=== PATIENT | male | born 1975 | race Caucasian/White ===

== ENCOUNTER 2018-02-08 01:07 | Observation (INO) ==
[2018-02-08] MEDS ORDERED: VITAMIN K IVC ONE (01:45)
[2018-02-08] MEDS ORDERED: *HR* LORazepam 2 MG/ML VIAL IVP ONE (01:45)
[2018-02-08] MEDS ORDERED: MVI IVC ONE (01:45)
[2018-02-08] MEDS ORDERED: Thiamine (B-1) 200 MG/2 ML VIAL IM ONE (01:45)
[2018-02-08] MEDS ORDERED: FOLIC ACID IVC ONE (01:45)
[2018-02-08] MEDS ORDERED: SODIUM CHLORIDE 0.9% IVC ONE (01:45)
[2018-02-08] MEDS ORDERED: 0.9 % Sodium Chloride 1,000 ML IVC ONE (01:45)
[2018-02-08] MEDS ORDERED: Folic Acid 1 MG in D5% in Water 50 ML IVPB ONE (01:45)
--- NOTE | 2018-02-08 02:02 | Emergency Department Note ---
Disposition Clinical Impression: Suicidal ideation, Alcohol abuse Disposition: Admitted As Inpatient Condition: Fair Referrals: NONE,PCP [Primary Care Provider] - Forms: ED Satisfaction Letter Time of Disposition: 03:00 Psych HPI - General Chief Complaint: ED Psychiatric Symptoms Stated Complaint: SI Time Seen by Provider: 02/08/18 01:26 Source: patient Mode of arrival: ambulatory Limitations: no limitations Nursing Notes Reviewed: Yes Vital Signs Reviewed: Yes - History of Present Illness HPI Narrative: 42-year-old male presents for evaluation of suicidal ideations and worsening depression. He states multiple significant life stressors at home have accumulated recently. These include the breakup with his significant other, loss of a job, and mounting financial debt. He states that for the past 16 days , he has drank a half gallon of whiskey per day. He states that his last drink was approximately 2 hours prior to arrival. He is extremely anxious in the room. He states that tonight, he took a knife and held it to his neck in an attempt to "cut my neck". There is a small superficial laceration noted to the lateral aspect of the anterior neck. He denies any previous suicidal gestures. He denies any thoughts of harming others. He does state that for the past several days he has been experiencing visual hallucinations including "seeing demons run around". He denies any auditory hallucinations. He denies any other recreational He denies any other medical complaints. Pt complaint: suicidal ideation, feels depressed Duration: getting worse History of similar episodes: No Improves with: none Worsens with: none Context: recent alcohol abuse Alleged intoxication: Yes Associated Psychiatric Symptoms: depression, suicidal ideation Associated symptoms: Reports: denies other symptoms Traumatic symptoms: denies traumatic injury Self harm or harm to others: admits thoughts of self harm, has acted on plan - Related Data Allergies Allergy/AdvReac Type Severity Reaction Status Date / Time No Known Allergies Allergy Verified 02/08/18 01:12 All systems ED: reviewed and negative except as stated. Review of Systems: As Per HPI Constitutional: Denies: fever, chills, weakness, weight change Eyes: Denies: eye pain, eye discharge, vision change ENT ED: Denies: ear pain, throat pain, dental pain, hearing loss, epistaxis, congestion, dysphagia Cardiovascular: Denies: chest pain, palpitations, dyspnea on exertion, edema, syncope Respiratory: Denies: cough, dyspnea, wheezes, hemoptysis, stridor Gastrointestinal: Denies: abdominal pain, nausea, vomiting, diarrhea, constipation, hematemesis, melena, hematochezia Genitourinary: Denies: urgency, dysuria, frequency, hematuria Musculoskeletal: Denies: back pain, neck pain, arthralgia, myalgia Integumentary: Denies: rash, abrasion, lesions Neurological: Denies: headache, weakness, numbness, paresthesias, confusion, abnormal gait, vertigo Psychiatric: Reports: as per HPI, depression, suicidal thoughts. Denies: anxiety, homicidal thoughts, auditory hallucinations, visual hallucinations Endocrine: Denies: fatigue Hematological/Lymphatic: Denies: easy bleeding, easy bruising Allergic/Immunologic: Denies: facial swelling, urticaria Past Medical History - Past Medical History Attestation: Yes The following information was validated with the patient. Source: patient, nursing notes reviewed Medical history: Reports: hypertension Psychiatric history: Reports: anxiety, bipolar, depression - Social History Smoking Status: Never smoker Alcohol use: Reports: heavy, recent Drug use: Reports: none Physical Exam - General Limitations: no limitations General appearance: alert, in no apparent distress - Head Head exam: atraumatic, normocephalic, normal inspection - Eye Eye exam: Present: normal appearance, PERRL, EOMI. Absent: nystagmus - ENT ENT exam: mucous membranes moist - Neck Neck exam: Present: normal inspection, full ROM, trachea midline - Chest Chest inspection: Present: normal inspection, symmetric chest wall rise - Respiratory Respiratory exam: Present: normal lung sounds bilaterally. Absent: respiratory distress, wheezes, stridor, accessory muscle use, prolonged expiratory phase - Cardiovascular Cardiovascular exam: Present: regular rate, normal rhythm, normal heart sounds - Abdominal Exam Abdominal exam: Present: soft, Non-Tender, normal bowel sounds - Extremities Exam Extremities exam: Present: normal inspection, full ROM - Neurological Exam Neurological exam: Present: alert, oriented X3 - Psychiatric Psychiatric exam: Present: depressed, anxious, suicidal ideation, other (Tearful ) - Skin Skin exam: Present: warm, dry, intact, normal color Course Course Narrative: 0250: I spoke with Dr. Caicedo, hospitalist on-call. The patient will be admitted to the hospitalist service or observation and management regarding his heavy alcohol intake and concern for alcohol withdrawal prior to consultation by in-house psychiatry. Vital Signs Temperature 99.5 F 02/08/18 01:08 Pulse Rate 145 02/08/18 01:08 Respiratory Rate 24 02/08/18 01:08 Blood Pressure 175/119 02/08/18 01:08 O2 Sat by Pulse Oximetry 98 02/08/18 01:08 Temperature 99.5 F 02/08/18 01:08 Pulse Rate 145 02/08/18 01:08 Respiratory Rate 24 02/08/18 01:08 Blood Pressure 175/119 02/08/18 01:08 O2 Sat by Pulse Oximetry 98 02/08/18 01:08 Oxygen Delivery Oxygen Delivery Room Air Psych - Lab Data Lab results reviewed: Yes I reviewed the patient's lab results. Lab results narrative: Lab Results 02/08/18 02/08/18 02/08/18 Range/Units 01:44 01:44 02:10 WBC 5.7 (4.3-11.1) K/mcL RBC 5.29 (4.19-5.50) M/mcL Hgb 14.5 (12.9-16.9) g/dL Hct 42.3 (37.5-50.1) % MCV 80.0 L (83.0-100.0) fL MCH 27.4 L (28.0-33.3) pg MCHC 34.3 (31.6-35.5) g/dL RDW 14.7 H (11.5-14.5) % Plt Count 153 (140-400) K/mcL MPV 9.5 (9.4-12.4) fL Immature Gran % 0.4 (0-4) % Seg Neutrophils % 53.4 % Lymphocytes % 31.7 % Monocytes % 12.4 % Eosinophils % 1.2 % Basophils % 0.9 % Neutrophils # 3.1 (1.6-8.9) K/mcL Lymphocytes # 1.8 (0.6-4.6) K/mcL Monocytes # 0.7 (0.0-1.3) K/mcL Eosinophils # 0.1 (0.0-0.6) K/mcL Basophils # 0.1 (0.0-0.2) K/mcL Sodium 133 L (136-145) mEq/L Potassium 3.5 (3.5-5.1) mEq/L Chloride 94 L (98-107) mEq/L Carbon Dioxide 20 L (23-29) mEq/L BUN 7 (6-20) mg/dL Creatinine 0.72 (0.70-1.30) mg/dL Est GFR ( Amer) > 60 (> 60) Est GFR (Non-Af Amer) > 60 (> 60) BUN/Creatinine Ratio 10 (6-26) Glucose 104 (70-105) mg/dL Calculated Osmolality 274 L (280-300) Calcium 9.2 (8.6-10.3) mg/dL Phosphorus 3.9 (2.7-4.5) mg/dL Magnesium 1.5 L (1.6-2.6) mg/dL Urine Color Yellow (Yellow) Urine Clarity Clear (Clear) Urine pH 6.0 (5.0-8.0) pH Units Ur Specific [place] < 1.005 L (1.010-1.025) Urine Protein 100 H (Neg-Trace) mg/dL Urine Glucose (UA) Normal (Normal) mg/dL Urine Ketones Negative (Negative) mg/dL Urine Blood Moderate H (Negative) Urine Nitrite Negative (Negative) Urine Bilirubin Negative (Negative) Urine Urobilinogen Normal (Normal) mg/dL Ur Leukocyte Esterase Negative (Negative) Urine Bacteria Few (None-Few) per hpf Salicylates < 2.5 L (15.0-30.0) mg/dL Urine Opiates Screen (Niynro=079) ng/mL Acetaminophen < 10 L (10-20) mcg/mL Ur Barbiturates Screen (Qnfkgn=694) ng/mL Ur Phencyclidine Scrn (Cutoff=25) ng/mL Ur Amphetamines Screen (Fnohfe=6334) ng/mL U Benzodiazepines Scrn (Tahrdg=951) ng/mL Urine Cocaine Screen (Cutoff= 300) ng/mL U Marijuana (THC) Screen (Cutoff = 50) ng/mL Ur Drug Screen Interp Ethyl Alcohol 317 H (Less than 10) mg/dL 02/08/18 Range/Units 02:10 WBC (4.3-11.1) K/mcL RBC (4.19-5.50) M/mcL Hgb (12.9-16.9) g/dL Hct (37.5-50.1) % MCV (83.0-100.0) fL MCH (28.0-33.3) pg MCHC (31.6-35.5) g/dL RDW (11.5-14.5) % Plt Count (140-400) K/mcL MPV (9.4-12.4) fL Immature Gran % (0-4) % Seg Neutrophils % % Lymphocytes % % Monocytes % % Eosinophils % % Basophils % % Neutrophils # (1.6-8.9) K/mcL Lymphocytes # (0.6-4.6) K/mcL Monocytes # (0.0-1.3) K/mcL Eosinophils # (0.0-0.6) K/mcL Basophils # (0.0-0.2) K/mcL Sodium (136-145) mEq/L Potassium (3.5-5.1) mEq/L Chloride (98-107) mEq/L Carbon Dioxide (23-29) mEq/L BUN (6-20) mg/dL Creatinine (0.70-1.30) mg/dL Est GFR ( Amer) (> 60) Est GFR (Non-Af Amer) (> 60) BUN/Creatinine Ratio (6-26) Glucose (70-105) mg/dL Calculated Osmolality (280-300) Calcium (8.6-10.3) mg/dL Phosphorus (2.7-4.5) mg/dL Magnesium (1.6-2.6) mg/dL Urine Color (Yellow) Urine Clarity (Clear) Urine pH (5.0-8.0) pH Units Ur Specific [place] (1.010-1.025) Urine Protein (Neg-Trace) mg/dL Urine Glucose (UA) (Normal) mg/dL Urine Ketones (Negative) mg/dL Urine Blood (Negative) Urine Nitrite (Negative) Urine Bilirubin (Negative) Urine Urobilinogen (Normal) mg/dL Ur Leukocyte Esterase (Negative) Urine Bacteria (None-Few) per hpf Salicylates (15.0-30.0) mg/dL Urine Opiates Screen Negative (Bathjy=566) ng/mL Acetaminophen (10-20) mcg/mL Ur Barbiturates Screen Negative (Bqijms=783) ng/mL Ur Phencyclidine Scrn Negative (Cutoff=25) ng/mL Ur Amphetamines Screen Negative (Zwviki=5004) ng/mL U Benzodiazepines Scrn Negative (Abttjg=365) ng/mL Urine Cocaine Screen Negative (Cutoff= 300) ng/mL U Marijuana (THC) Screen Negative (Cutoff = 50) ng/mL Ur Drug Screen Interp See Below Ethyl Alcohol (Less than 10) mg/dL Result diagrams: 02/08/18 01:44 02/08/18 01:44 Lab Results 02/08/18 02/08/18 02/08/18 Range/Units 01:44 01:44 02:10 WBC 5.7 (4.3-11.1) K/mcL RBC 5.29 (4.19-5.50) M/mcL Hgb 14.5 (12.9-16.9) g/dL Hct 42.3 (37.5-50.1) % MCV 80.0 L (83.0-100.0) fL MCH 27.4 L (28.0-33.3) pg MCHC 34.3 (31.6-35.5) g/dL RDW 14.7 H (11.5-14.5) % Plt Count 153 (140-400) K/mcL MPV 9.5 (9.4-12.4) fL Immature Gran % 0.4 (0-4) % Seg Neutrophils % 53.4 % Lymphocytes % 31.7 % Monocytes % 12.4 % Eosinophils % 1.2 % Basophils % 0.9 % Neutrophils # 3.1 (1.6-8.9) K/mcL Lymphocytes # 1.8 (0.6-4.6) K/mcL Monocytes # 0.7 (0.0-1.3) K/mcL Eosinophils # 0.1 (0.0-0.6) K/mcL Basophils # 0.1 (0.0-0.2) K/mcL Sodium 133 L (136-145) mEq/L Potassium 3.5 (3.5-5.1) mEq/L Chloride 94 L (98-107) mEq/L Carbon Dioxide 20 L (23-29) mEq/L BUN 7 (6-20) mg/dL Creatinine 0.72 (0.70-1.30) mg/dL Est GFR ( Amer) > 60 (> 60) Est GFR (Non-Af Amer) > 60 (> 60) BUN/Creatinine Ratio 10 (6-26) Glucose 104 (70-105) mg/dL Calculated Osmolality 274 L (280-300) Calcium 9.2 (8.6-10.3) mg/dL Phosphorus 3.9 (2.7-4.5) mg/dL Magnesium 1.5 L (1.6-2.6) mg/dL Urine Color Yellow (Yellow) Urine Clarity Clear (Clear) Urine pH 6.0 (5.0-8.0) pH Units Ur Specific [place] < 1.005 L (1.010-1.025) Urine Protein 100 H (Neg-Trace) mg/dL Urine Glucose (UA) Normal (Normal) mg/dL Urine Ketones Negative (Negative) mg/dL Urine Blood Moderate H (Negative) Urine Nitrite Negative (Negative) Urine Bilirubin Negative (Negative) Urine Urobilinogen Normal (Normal) mg/dL Ur Leukocyte Esterase Negative (Negative) Urine Bacteria Few (None-Few) per hpf Salicylates < 2.5 L (15.0-30.0) mg/dL Urine Opiates Screen (Lmsozj=707) ng/mL Acetaminophen < 10 L (10-20) mcg/mL Ur Barbiturates Screen (Revquj=421) ng/mL Ur Phencyclidine Scrn (Cutoff=25) ng/mL Ur Amphetamines Screen (Lkvkyk=7325) ng/mL U Benzodiazepines Scrn (Lzuete=251) ng/mL Urine Cocaine Screen (Cutoff= 300) ng/mL U Marijuana (THC) Screen (Cutoff = 50) ng/mL Ur Drug Screen Interp Ethyl Alcohol 317 H (Less than 10) mg/dL 02/08/18 Range/Units 02:10 WBC (4.3-11.1) K/mcL RBC (4.19-5.50) M/mcL Hgb (12.9-16.9) g/dL Hct (37.5-50.1) % MCV (83.0-100.0) fL MCH (28.0-33.3) pg MCHC (31.6-35.5) g/dL RDW (11.5-14.5) % Plt Count (140-400) K/mcL MPV (9.4-12.4) fL Immature Gran % (0-4) % Seg Neutrophils % % Lymphocytes % % Monocytes % % Eosinophils % % Basophils % % Neutrophils # (1.6-8.9) K/mcL Lymphocytes # (0.6-4.6) K/mcL Monocytes # (0.0-1.3) K/mcL Eosinophils # (0.0-0.6) K/mcL Basophils # (0.0-0.2) K/mcL Sodium (136-145) mEq/L Potassium (3.5-5.1) mEq/L Chloride (98-107) mEq/L Carbon Dioxide (23-29) mEq/L BUN (6-20) mg/dL Creatinine (0.70-1.30) mg/dL Est GFR ( Amer) (> 60) Est GFR (Non-Af Amer) (> 60) BUN/Creatinine Ratio (6-26) Glucose (70-105) mg/dL Calculated Osmolality (280-300) Calcium (8.6-10.3) mg/dL Phosphorus (2.7-4.5) mg/dL Magnesium (1.6-2.6) mg/dL Urine Color (Yellow) Urine Clarity (Clear) Urine pH (5.0-8.0) pH Units Ur Specific [place] (1.010-1.025) Urine Protein (Neg-Trace) mg/dL Urine Glucose (UA) (Normal) mg/dL Urine Ketones (Negative) mg/dL Urine Blood (Negative) Urine Nitrite (Negative) Urine Bilirubin (Negative) Urine Urobilinogen (Normal) mg/dL Ur Leukocyte Esterase (Negative) Urine Bacteria (None-Few) per hpf Salicylates (15.0-30.0) mg/dL Urine Opiates Screen Negative (Fbeplj=075) ng/mL Acetaminophen (10-20) mcg/mL Ur Barbiturates Screen Negative (Abhtbx=653) ng/mL Ur Phencyclidine Scrn Negative (Cutoff=25) ng/mL Ur Amphetamines Screen Negative (Oorkne=2424) ng/mL U Benzodiazepines Scrn Negative (Fzfkzm=737) ng/mL Urine Cocaine Screen Negative (Cutoff= 300) ng/mL U Marijuana (THC) Screen Negative (Cutoff = 50) ng/mL Ur Drug Screen Interp See Below Ethyl Alcohol (Less than 10) mg/dL - EKG Data EKG attestation: Yes I reviewed and interpreted this EKG. EKG results narrative: EKG showed a sinus tachycardia at a rate of 148 bpm. NV interval 132, QRS duration 87, QT/QTc interval 267/352. No ectopy noted. No ST elevation. Psychiatric Medical Clearance - Medical Clearance Checklist Medical History: No Social History Section defined Current Vitals: Last Vital Signs Temp 99.5 F 02/08/18 01:08 Pulse 145 02/08/18 01:08 Resp 24 02/08/18 01:08 BP 175/119 02/08/18 01:08 Pulse Ox 98 02/08/18 01:08 Psychiatric Lab Panel: Drug Levels and Toxicity 02/08/18 02/08/18 01:44 02:10 Urine Opiates Screen Negative Acetaminophen < 10 L Ur Barbiturates Screen Negative Ur Phencyclidine Scrn Negative Ur Amphetamines Screen Negative U Benzodiazepines Scrn Negative Urine Cocaine Screen Negative U Marijuana (THC) Screen Negative Ethyl Alcohol 317 H Abnormal Labs: Abnormal lab results MCV 80.0 fL (83.0-100.0) L 02/08/18 01:44 MCH 27.4 pg (28.0-33.3) L 02/08/18 01:44 RDW 14.7 % (11.5-14.5) H 02/08/18 01:44 Sodium 133 mEq/L (136-145) L 02/08/18 01:44 Chloride 94 mEq/L (98-107) L 02/08/18 01:44 Carbon Dioxide 20 mEq/L (23-29) L 02/08/18 01:44 Calculated Osmolality 274 (280-300) L 02/08/18 01:44 Magnesium 1.5 mg/dL (1.6-2.6) L 02/08/18 01:44 Ur Specific [place] < 1.005 (1.010-1.025) L 02/08/18 02:10 Urine Protein 100 mg/dL (Neg-Trace) H 02/08/18 02:10 Urine Blood Moderate (Negative) H 02/08/18 02:10 Salicylates < 2.5 mg/dL (15.0-30.0) L 02/08/18 01:44 Acetaminophen < 10 mcg/mL (10-20) L 02/08/18 01:44 Ethyl Alcohol 317 mg/dL (Less than 10) H 02/08/18 01:44 Statement of Medical Clearance: I have evaluated the patient, reviewed diagnostic information, and certify that the patient's medical condition is sufficiently stable that transfer to the psychiatric unit does not pose a significant risk of deterioration.
[2018-02-08 02:06] LABS: Basophils # 0.1 K/mcL (0.0-0.2); Basophils % 0.9 %; Eosinophils # 0.1 K/mcL (0.0-0.6); Eosinophils % 1.2 %; Hematocrit 42.3 % (37.5-50.1); Hemoglobin 14.5 g/dL (12.9-16.9); Immature Granulocytes % 0.4 % (0-4); Lymphocytes # 1.8 K/mcL (0.6-4.6); Lymphocytes % 31.7 %; Mean Corpuscular HGB Conc 34.3 g/dL (31.6-35.5); Mean Corpuscular Hemoglobin 27.4 pg (28.0-33.3); Mean Platelet Volume 9.5 fL (9.4-12.4); Monocytes # 0.7 K/mcL (0.0-1.3); Monocytes % 12.4 %; Neutrophils # 3.1 K/mcL (1.6-8.9); Platelet Count 153 K/mcL (140-400); Red Blood Count 5.29 M/mcL (4.19-5.50); Red Cell Distribution Width 14.7 % (11.5-14.5); Segmented Neutrophils % 53.4 %
[2018-02-08 02:15] LABS: Acetaminophen < 10 mcg/mL (10-20); BUN/Creatinine Ratio 10 (6-26); Blood Urea Nitrogen 7 mg/dL (6-20); Calcium 9.2 mg/dL (8.6-10.3); Carbon Dioxide 20 mEq/L (23-29); Chloride 94 mEq/L (98-107); Ethanol 317 mg/dL (Less than 10); Glucose 104 mg/dL (70-105); Magnesium 1.5 mg/dL (1.6-2.6); Osmolality,Calculated 274 (280-300); Phosphorous 3.9 mg/dL (2.7-4.5); Potassium 3.5 mEq/L (3.5-5.1); Salicylate < 2.5 mg/dL (15.0-30.0); Sodium 133 mEq/L (136-145); eGFR For Non-African Americans > 60 (> 60)
[2018-02-08 02:22] LABS: Bilirubin,Urine Negative (Negative); Blood,Urine Moderate (Negative); Clarity,Urine Clear (Clear); Color,Urine Yellow (Yellow); Glucose,Urine (UA) Normal (Normal); Ketones,Urine Negative (Negative); Leukocyte Esterase,Urine Negative (Negative); Nitrite,Urine Negative (Negative); Protein,Urine 100 mg/dL (Neg-Trace); Specific Gravity,Urine < 1.005 (1.010-1.025); Urobilinogen,Urine Normal (Normal)
[2018-02-08 02:31] LABS: Amphetamine Screen,Urine Negative ng/mL (Cutoff=1000); Barbiturate Screen,Urine Negative ng/mL (Cutoff=200); Benzodiazepines Screen,Urine Negative ng/mL (Cutoff=200); Cannabinoid Screen,Urine Negative ng/mL (Cutoff = 50); Cocaine Screen,Urine Negative ng/mL (Cutoff= 300); Opiate Screen,Urine Negative ng/mL (Cutoff=300); Phencyclidine Screen,Urine Negative ng/mL (Cutoff=25)
[2018-02-08] MEDS ORDERED: Magnesium Oxide 400 MG TABLET PO STA (02:33)
[2018-02-08 02:58] LABS: Bacteria,Urine Few per hpf (None-Few)
[2018-02-08] MEDS: *HR* LORazepam 2 MG/ML VIAL IVP PRN ×4 (06:17→20:26)
[2018-02-08] MEDS: *HR* Promethazine 25 MG/ML VIAL IVP PRN ×2 (06:58→11:21)
--- NOTE | 2018-02-08 07:44 | Internal Med History&Physical ---
Date of Encounter: 02/08/18 Time of Encounter: 07:43 Internal Medicine - H&P: HPI Chief complaint: Suicidal ideation Admitted From: Emergency Dept Plans for Post Hospital Care: Home History of present illness: Mr. Merino is a 42 year old male patient presented to the emergency department with suicidal ideations and worsening depression. He has had significant life stressors including loss of job financial dad and brachial pulses girlfriend. For the past 16 days he has been drinking half a gallon of vodka a day. He has been experiencing hallucinations stating he is seeing demons running around. He has had suicidal thoughts and attempted to cut his neck. He did present to the emergency department with a superficial laceration to his neck. He denies any recreational drug use or cigarette smoking. He admits that his drinking has been cyclic and occurs mostly when he is depressed. He states that he did have an episode of seizures secondary to alcohol withdrawal approximately a year or so ago. Initial tox screen does show alcohol level 317. Lab work did show slight hyponatremia and hypomagnesemia. He was given IV fluid as well as magnesium IV. Currently patient complains of nausea denies any hallucinations at this time. Nursing staff reports that he is required supplemental Ativan based CIWA scale. He has been admitted for further workup evaluation of suicidal ideation and alcohol withdrawal Past Med Surg Social Fam HX - Past Medical History Medical history: hypertension Psychiatric history: anxiety, bipolar, depression - Social History Smoking Status: Never smoker Alcohol use: heavy, recent Drug use: none - Additional Family History Additional family history: Family history reviewed-nonapplicable Internal Medicine - H&P: Meds No Known Home Drugs 02/08/18 [History] 3 Allergy/AdvReac Type Severity Reaction Status Date / Time No Known Allergies Allergy Verified 02/08/18 01:12 All Systems PM: A 10-system review of systems was performed and is negative for pertinent findings except as documented above in the HPI. - Constitutional Constitutional: no chills, no fever(s), no night sweats - EENT Eyes: no change in vision, no discharge, no pain, no photophobia Ears: no ear discharge, no ear pain, no tinnitus Nose, mouth and throat: no dysphagia, no nasal discharge, no neck pain, no sore throat - Cardiovascular Cardiovascular ROS IM: no chest pain, no diaphoresis, no dyspnea, no lightheadedness, no palpitations, no syncope - Respiratory Respiratory: no cough, no dyspnea, no wheezing, no excessive phlegm production - Gastrointestinal Gastrointestinal: no abdominal pain, no diarrhea, no hematemesis, no hematochezia, no melena, no nausea, no vomiting - Musculoskeletal Musculoskeletal ROS IM: no numbness, no tingling - Integumentary Integumentary IM: no rash, no unusual bruising - Neurological Neurological ROS: no confusion, no convulsions, no focal weakness, no numbness, no tingling, no tremor(s) - Psychiatric Psychiatric: visual hallucinations - Hematologic/Lymphatic Hematologic/Lymphatic: no easy bruising - Constitutional Vitals: Temp Pulse Resp BP Pulse Ox 98.5 F 125 16 132/87 96 02/08/18 05:05 02/08/18 05:05 02/08/18 05:05 02/08/18 05:05 02/08/18 05:05 General appearance: Present: A&O X 3 Exam: see above - Head Head exam: Present: atraumatic, normocephalic - Eye Eye exam: Present: PERRL, conjuntiva pink, sclera anicteric Pupils: Present: PERRL - Neck Neck exam general surgery: Present: supple, trachea midline. Absent: lymphadenopathy - Respiratory Respiratory exam: Present: CTAB. Absent: accessory muscle use, rales, rhonchi, wheezes - Cardiovascular Cardiovascular exam: Present: RRR, +S1, +S2. Absent: diastolic murmur, gallop, rubs, systolic murmur - GI/Abdominal GI/Abdominal exam: Present: normal bowel sounds, soft, no peritoneal signs. Absent: distended, tenderness - Extremities Exam Extremities exam: Present: warm, radial pulses palpable and symmetrical. Absent : calf tenderness, cyanotic, pedal edema - Neurological Exam Neurological exam: Present: CN II-XII intact, oriented X3, no focal deficits. Absent: pronater drift, facial droop, speech deficit - Skin Skin exam: Present: dry, intact Internal Med - H&P Results - Labs CBC & Chem 7: 02/08/18 01:44 02/08/18 01:44 - Assessment and plan (1) Alcohol abuse Current Visit: Yes Status: Acute Assessment and plan: Patient states he has a past history of alcohol use mostly during times of stress. He recently has experienced several life stressors including loss of job loss of relationship and financial debt. He states apraxia year ago he did experience a seizure secondary to alcohol withdrawal. We will place on seizure precautions Continue with CIWA Continue with Librium 4 times a day Banana bag IV daily Zofran as needed for nausea Advance diet as tolerated Continue with IV fluids Monitor electrolytes and replace (2) Hypomagnesemia Current Visit: Yes Status: Acute Assessment and plan: Mag was 1.5 today most likely secondary to alcohol abuse we will replace and monitor (3) Suicidal ideation Current Visit: Yes Status: Acute Assessment and plan: 1 patient states that he had been experiencing suicidal ideation and depression he has had several life stressors including loss of job ending a relationship as well as financial debt. He attempted to cut his neck and sustained a superficial laceration to his neck. We will consult psychiatry once patient is medically stable (4) Hyponatremia Current Visit: Yes Status: Acute Assessment and plan: Patient does have some slight hyponatremia 133 today secondary to alcohol use we will continue to monitor he will receive IV fluids recheck in the a.m. - Time Spent With Patient Total time spent is greater than 50% in coordination of care (as documented) at patient's floor/unit and/or counseling patient:
[2018-02-08] MEDS ORDERED: Naloxone 0.4 MG/ML INJ IVP PRN (10:47)
[2018-02-08] MEDS ORDERED: *HR* LORazepam 2 MG/ML VIAL IVP PRN (11:34)
--- NOTE | 2018-02-08 15:51 | Consult Note ---
Date of Encounter: 02/08/18 Time of Encounter: 14:15 Assessment & Recommendation (1) Suicidal ideation Current visit: Yes Status: Acute Assessment & Recommendation: contiue 1:1 start lexapro 10 mg start depakote 250 mg bid. will need psychiatric inpatient. (2) Alcohol withdrawal Current visit: Yes Status: Acute Qualifiers: Qualified Code(s): F10.232 - Alcohol dependence with withdrawal with perceptual disturbance (3) Major depress dis, severe Current visit: Yes Status: Acute Assessment & Recommendation: continue :1 :1 start lexapro 10 mg (4) Alcohol dependence Current visit: Yes Status: Acute Qualifiers: Substance use status: uncomplicated Qualified Code(s): F10.20 - Alcohol dependence, uncomplicated History of Present Illness Patient: new to practice Requesting Physician: Kt Caicedo MD Reason for consult: sitter1:1 /pink slip on chart. History of present illness: Mr. Merino is a 42 year old male who was consulted today for being pink slip in chart and suicidal . Patient was evaluated at bedside , he was verbal and able to give history . was bought to ED after he called 911 as he tried to cut self in his neck and was intoxicated . 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 he still remains suicidal and depress he feels hopeless/worthless and does not want to live. he also admits to visual hallucination and at times auditory hallucination. he has aner , mood swings and is suicidal at present. denies any manic episode He has h/o DT in 12/01 at that time was at [facility]. Past psych denies any , no h/o si he has been to AA in past but no rehab or any other treatment. Family significant for alcoholism both sides. Social he lives by himself., unemployed , has h/o DUI/DWI in past and recently has court date for domestic violence. A/P alcohol withdrawal stabilization Alcohol Dependence MDD single episode with suicidal ideation. continue 1:1 please start depakote 250 mg bid. strt lexapro 10 mg once medically stable will need to admit him to psych. Thank you for consult. CC: Kt Caicedo MD Past Med Surg Social Fam HX - Past Medical History Medical history: hypertension - Past Psychiatric History Psychiatric history: Reports: no psych history Family psychiatric history: Unknown Family History of Suicide: None - Social History Smoking Status: Never smoker Alcohol use: heavy, recent Drug use: none Medications & Allergies No Known Home Drugs 02/08/18 [History] 3 Allergy/AdvReac Type Severity Reaction Status Date / Time No Known Allergies Allergy Verified 02/08/18 01:12 Review of Systems Psychiatric: Reports: depression, anxiety, suicidal ideation Psychiatry Exam - Constitutional Vitals: Temp Pulse Resp BP Pulse Ox 98.0 F 115 14 137/87 98 02/08/18 09:02 02/08/18 09:02 02/08/18 09:02 02/08/18 09:02 02/08/18 09:02 General appearance: malnourished - Musculoskeletal Strength & Tone: normal for patient - Psychiatric Patient Orientation: Yes Person, Yes Time, Yes Place Level of alertness: Alert Behavior: cooperative, anxious Eye Contact: Maintains Eye Contact Mood Description: Depressed, Anxious Affect description: congruent with mood Speech Volume: Soft/Quiet Speech pattern: slowed Language & Vocabulary: consistent with education Thought Process: Intact Thought Content: Yes Suicidal ideation Perceptual Disturbances: Yes Visual hallucinations Attention Span Ability: Unable to Sustain Attention Memory Description: Grossly Intact Patient Reliability: Reliable Historian Fund of knowledge: Yes average Intelligence Estimate: Average Judgment: Poor Insight: Minimal Results - Labs Labs: Laboratory Last Values WBC 5.7 K/mcL (4.3-11.1) 02/08/18 01:44 RBC 5.29 M/mcL (4.19-5.50) 02/08/18 01:44 Hgb 14.5 g/dL (12.9-16.9) 02/08/18 01:44 Hct 42.3 % (37.5-50.1) 02/08/18 01:44 MCV 80.0 fL (83.0-100.0) L 02/08/18 01:44 MCH 27.4 pg (28.0-33.3) L 02/08/18 01:44 MCHC 34.3 g/dL (31.6-35.5) 02/08/18 01:44 RDW 14.7 % (11.5-14.5) H 02/08/18 01:44 Plt Count 153 K/mcL (140-400) 02/08/18 01:44 MPV 9.5 fL (9.4-12.4) 02/08/18 01:44 Immature Gran % 0.4 % (0-4) 02/08/18 01:44 Seg Neutrophils % 53.4 % 02/08/18 01:44 Lymphocytes % 31.7 % 02/08/18 01:44 Monocytes % 12.4 % 02/08/18 01:44 Eosinophils % 1.2 % 02/08/18 01:44 Basophils % 0.9 % 02/08/18 01:44 Neutrophils # 3.1 K/mcL (1.6-8.9) 02/08/18 01:44 Lymphocytes # 1.8 K/mcL (0.6-4.6) 02/08/18 01:44 Monocytes # 0.7 K/mcL (0.0-1.3) 02/08/18 01:44 Eosinophils # 0.1 K/mcL (0.0-0.6) 02/08/18 01:44 Basophils # 0.1 K/mcL (0.0-0.2) 02/08/18 01:44 Sodium 133 mEq/L (136-145) L 02/08/18 01:44 Potassium 3.5 mEq/L (3.5-5.1) 02/08/18 01:44 Chloride 94 mEq/L (98-107) L 02/08/18 01:44 Carbon Dioxide 20 mEq/L (23-29) L 02/08/18 01:44 BUN 7 mg/dL (6-20) 02/08/18 01:44 Creatinine 0.72 mg/dL (0.70-1.30) 02/08/18 01:44 Est GFR ( Amer) > 60 (> 60) 02/08/18 01:44 Est GFR (Non-Af Amer) > 60 (> 60) 02/08/18 01:44 BUN/Creatinine Ratio 10 (6-26) 02/08/18 01:44 Glucose 104 mg/dL (70-105) 02/08/18 01:44 Calculated Osmolality 274 (280-300) L 02/08/18 01:44 Calcium 9.2 mg/dL (8.6-10.3) 02/08/18 01:44 Phosphorus 3.9 mg/dL (2.7-4.5) 02/08/18 01:44 Magnesium 1.5 mg/dL (1.6-2.6) L 02/08/18 01:44 Urine Color Yellow (Yellow) 02/08/18 02:10 Urine Clarity Clear (Clear) 02/08/18 02:10 Urine pH 6.0 pH Units (5.0-8.0) 02/08/18 02:10 Ur Specific [place] < 1.005 (1.010-1.025) L 02/08/18 02:10 Urine Protein 100 mg/dL (Neg-Trace) H 02/08/18 02:10 Urine Glucose (UA) Normal mg/dL (Normal) 02/08/18 02:10 Urine Ketones Negative mg/dL (Negative) 02/08/18 02:10 Urine Blood Moderate (Negative) H 02/08/18 02:10 Urine Nitrite Negative (Negative) 02/08/18 02:10 Urine Bilirubin Negative (Negative) 02/08/18 02:10 Urine Urobilinogen Normal mg/dL (Normal) 02/08/18 02:10 Ur Leukocyte Esterase Negative (Negative) 02/08/18 02:10 Urine Bacteria Few per hpf (None-Few) 02/08/18 02:10 Salicylates < 2.5 mg/dL (15.0-30.0) L 02/08/18 01:44 Urine Opiates Screen Negative ng/mL (Sccjsk=352) 02/08/18 02:10 Acetaminophen < 10 mcg/mL (10-20) L 02/08/18 01:44 Ur Barbiturates Screen Negative ng/mL (Ukrtaa=992) 02/08/18 02:10 Ur Phencyclidine Scrn Negative ng/mL (Cutoff=25) 02/08/18 02:10 Ur Amphetamines Screen Negative ng/mL (Hvsnei=6926) 02/08/18 02:10 U Benzodiazepines Scrn Negative ng/mL (Qfvmsf=821) 02/08/18 02:10 Urine Cocaine Screen Negative ng/mL (Cutoff= 300) 02/08/18 02:10 U Marijuana (THC) Screen Negative ng/mL (Cutoff = 50) 02/08/18 02:10 Ur Drug Screen Interp See Below 02/08/18 02:10 Ethyl Alcohol 317 mg/dL (Less than 10) H 02/08/18 01:44 Consult Discharge Plan - Plan Referrals: NONE,PCP [Primary Care Provider] -
[2018-02-08] MEDS: Thiamine (B-1) 100 MG, Folic Acid 1 MG, MVI, adult with vitamin K 10 ML in 0.9 % Sodi... IVPB SCH (16:24)
[2018-02-09] MEDS: *HR* LORazepam 2 MG/ML VIAL IVP PRN ×3 (01:37→23:19)
[2018-02-09] MEDS: *HR* Promethazine 25 MG/ML VIAL IVP PRN ×3 (05:29→20:42)
[2018-02-09 06:26] LABS: Immature Granulocytes % 0.2 % (0-4); Mean Corpuscular Volume 84.2 fL (83.0-100.0)
[2018-02-09 06:28] LABS: Basophils % 0.6 %; Eosinophils # 0.2 K/mcL (0.0-0.6); Eosinophils % 4.1 %; Hematocrit 36.7 % (37.5-50.1); Hemoglobin 12.4 g/dL (12.9-16.9); Immature Platelets 5.1 % (1.1-6.1); Lymphocytes # 1.4 K/mcL (0.6-4.6); Mean Corpuscular HGB Conc 33.8 g/dL (31.6-35.5); Mean Corpuscular Hemoglobin 28.4 pg (28.0-33.3); Mean Platelet Volume 9.9 fL (9.4-12.4); Monocytes # 0.5 K/mcL (0.0-1.3); Monocytes % 11.7 %; Neutrophils # 2.5 K/mcL (1.6-8.9); Red Blood Count 4.36 M/mcL (4.19-5.50); Red Cell Distribution Width 14.8 % (11.5-14.5); Segmented Neutrophils % 53.4 %
[2018-02-09 06:32] LABS: Platelet Count 96 K/mcL (140-400)
[2018-02-09 06:47] LABS: BUN/Creatinine Ratio 13 (6-26); Blood Urea Nitrogen 9 mg/dL (6-20); Calcium 8.8 mg/dL (8.6-10.3); Carbon Dioxide 24 mEq/L (23-29); Chloride 106 mEq/L (98-107); Glucose 90 mg/dL (70-105); Osmolality,Calculated 286 (280-300); Potassium 3.6 mEq/L (3.5-5.1); Sodium 139 mEq/L (136-145); eGFR For Non-African Americans > 60 (> 60)
[2018-02-09 07:04] LABS: Platelet Estimate Slight Decrease (Normal)
--- NOTE | 2018-02-09 15:23 | Consult Note ---
Date of Encounter: 02/09/18 Time of Encounter: 14:15 Assessment & Recommendation (1) Suicidal ideation Current visit: Yes Status: Acute (2) Alcohol withdrawal Current visit: Yes Status: Acute Qualifiers: Qualified Code(s): F10.232 - Alcohol dependence with withdrawal with perceptual disturbance (3) Major depress dis, severe Current visit: Yes Status: Acute (4) Alcohol dependence Current visit: Yes Status: Acute Qualifiers: Substance use status: uncomplicated Qualified Code(s): F10.20 - Alcohol dependence, uncomplicated History of Present Illness Patient: new to practice Requesting Physician: Kt Caicedo MD Reason for consult: follow up History of present illness: Mr. Merino is a 42 year old male seen today , remains depress and suicidal , and has no hope , feeling tired, shaky and anxious. at present is severly depress and suicidal . recomend to start lexapro 10 mg .has not been started yet. thanks once medically stable transfer to psych inpatient.A1 CC: Kt Caicedo MD Past Med Surg Social Fam HX - Past Medical History Medical history: hypertension - Social History Smoking Status: Never smoker Alcohol use: heavy, recent Drug use: none Medications & Allergies No Known Home Drugs 02/08/18 [History] 3 Allergy/AdvReac Type Severity Reaction Status Date / Time No Known Allergies Allergy Verified 02/08/18 01:12 Review of Systems Psychiatric: Reports: depression, anxiety, suicidal ideation Psychiatry Exam - Constitutional Vitals: Temp Pulse Resp BP Pulse Ox 97.7 F 101 14 147/95 98 02/09/18 15:01 02/09/18 15:01 02/09/18 15:01 02/09/18 15:01 02/09/18 15:01 General appearance: age & developmentally appropriate - Psychiatric Patient Orientation: Yes Person, Yes Time, Yes Place Level of alertness: Sedated Behavior: cooperative, anxious Eye Contact: Minimal Contact Mood Description: Depressed, Anxious Affect description: congruent with mood Speech Volume: Soft/Quiet Speech pattern: slowed Thought Content: Yes Suicidal ideation, Yes Guilt Perceptual Disturbances: Yes Auditory hallucinations Attention Span Ability: Unable to Sustain Attention Judgment: Limited Insight: Minimal Results - Labs Labs: Laboratory Last Values WBC 4.6 K/mcL (4.3-11.1) 02/09/18 05:28 RBC 4.36 M/mcL (4.19-5.50) 02/09/18 05:28 Hgb 12.4 g/dL (12.9-16.9) L D 02/09/18 05:28 Hct 36.7 % (37.5-50.1) L 02/09/18 05:28 MCV 84.2 fL (83.0-100.0) 02/09/18 05:28 MCH 28.4 pg (28.0-33.3) 02/09/18 05:28 MCHC 33.8 g/dL (31.6-35.5) 02/09/18 05:28 RDW 14.8 % (11.5-14.5) H 02/09/18 05:28 Plt Count 96 K/mcL (140-400) L 02/09/18 05:28 MPV 9.9 fL (9.4-12.4) 02/09/18 05:28 Immature Gran % 0.2 % (0-4) 02/09/18 05:28 Seg Neutrophils % 53.4 % 02/09/18 05:28 Lymphocytes % 30.0 % 02/09/18 05:28 Monocytes % 11.7 % 02/09/18 05:28 Eosinophils % 4.1 % 02/09/18 05:28 Basophils % 0.6 % 02/09/18 05:28 Neutrophils # 2.5 K/mcL (1.6-8.9) 02/09/18 05:28 Lymphocytes # 1.4 K/mcL (0.6-4.6) 02/09/18 05:28 Monocytes # 0.5 K/mcL (0.0-1.3) 02/09/18 05:28 Eosinophils # 0.2 K/mcL (0.0-0.6) 02/09/18 05:28 Basophils # 0.0 K/mcL (0.0-0.2) 02/09/18 05:28 Platelet Estimate Slight Decrease (Normal) L 02/09/18 05:28 Immature Plt Fraction 5.1 % (1.1-6.1) 02/09/18 05:28 Sodium 139 mEq/L (136-145) 02/09/18 05:28 Potassium 3.6 mEq/L (3.5-5.1) 02/09/18 05:28 Chloride 106 mEq/L (98-107) 02/09/18 05:28 Carbon Dioxide 24 mEq/L (23-29) 02/09/18 05:28 BUN 9 mg/dL (6-20) 02/09/18 05:28 Creatinine 0.70 mg/dL (0.70-1.30) 02/09/18 05:28 Est GFR ( Amer) > 60 (> 60) 02/09/18 05:28 Est GFR (Non-Af Amer) > 60 (> 60) 02/09/18 05:28 BUN/Creatinine Ratio 13 (6-26) 02/09/18 05:28 Glucose 90 mg/dL (70-105) 02/09/18 05:28 Calculated Osmolality 286 (280-300) 02/09/18 05:28 Calcium 8.8 mg/dL (8.6-10.3) 02/09/18 05:28 Phosphorus 3.9 mg/dL (2.7-4.5) 02/08/18 01:44 Magnesium 1.5 mg/dL (1.6-2.6) L 02/08/18 01:44 Urine Color Yellow (Yellow) 02/08/18 02:10 Urine Clarity Clear (Clear) 02/08/18 02:10 Urine pH 6.0 pH Units (5.0-8.0) 02/08/18 02:10 Ur Specific [place] < 1.005 (1.010-1.025) L 02/08/18 02:10 Urine Protein 100 mg/dL (Neg-Trace) H 02/08/18 02:10 Urine Glucose (UA) Normal mg/dL (Normal) 02/08/18 02:10 Urine Ketones Negative mg/dL (Negative) 02/08/18 02:10 Urine Blood Moderate (Negative) H 02/08/18 02:10 Urine Nitrite Negative (Negative) 02/08/18 02:10 Urine Bilirubin Negative (Negative) 02/08/18 02:10 Urine Urobilinogen Normal mg/dL (Normal) 02/08/18 02:10 Ur Leukocyte Esterase Negative (Negative) 02/08/18 02:10 Urine Bacteria Few per hpf (None-Few) 02/08/18 02:10 Salicylates < 2.5 mg/dL (15.0-30.0) L 02/08/18 01:44 Urine Opiates Screen Negative ng/mL (Rixsjj=320) 02/08/18 02:10 Acetaminophen < 10 mcg/mL (10-20) L 02/08/18 01:44 Ur Barbiturates Screen Negative ng/mL (Juurqa=710) 02/08/18 02:10 Ur Phencyclidine Scrn Negative ng/mL (Cutoff=25) 02/08/18 02:10 Ur Amphetamines Screen Negative ng/mL (Feeurj=7921) 02/08/18 02:10 U Benzodiazepines Scrn Negative ng/mL (Bflbkx=032) 02/08/18 02:10 Urine Cocaine Screen Negative ng/mL (Cutoff= 300) 02/08/18 02:10 U Marijuana (THC) Screen Negative ng/mL (Cutoff = 50) 02/08/18 02:10 Ur Drug Screen Interp See Below 02/08/18 02:10 Ethyl Alcohol 317 mg/dL (Less than 10) H 02/08/18 01:44 Consult Discharge Plan - Plan Referrals: NONE,PCP [Primary Care Provider] -
[2018-02-09] MEDS: Thiamine (B-1) 100 MG, Folic Acid 1 MG, MVI, adult with vitamin K 10 ML in 0.9 % Sodi... IVPB SCH (17:54)
--- NOTE | 2018-02-09 18:08 | Internal Med Progress Note ---
Hospitalist Progress Note - Encounter Date of Encounter: 02/09/18 Time of Encounter: 11:06 - Subjective Interval History: Patient seen and examined at bedside- he cont to experience withdrawal sx, no hallucinations at this time some fine tremors, appetite improving no N/V at this time - Exam Vitals: Temp Pulse Resp BP Pulse Ox 97.7 F 101 14 147/95 98 02/09/18 15:01 02/09/18 15:01 02/09/18 15:01 02/09/18 15:01 02/09/18 15:01 Exam: General appearance: Present: A&O X 3 Exam: - Head Head exam: Present: atraumatic, normocephalic - Eye Eye exam: Present: PERRL, conjuntiva pink, sclera anicteric Pupils: Present: PERRL - Neck Neck exam general surgery: Present: supple, trachea midline. Absent: lymphadenopathy - Respiratory Respiratory exam: Present: CTAB. Absent: accessory muscle use, rales, rhonchi, wheezes - Cardiovascular Cardiovascular exam: Present: RRR, +S1, +S2. Absent: diastolic murmur, gallop, rubs, systolic murmur - GI/Abdominal GI/Abdominal exam: Present: normal bowel sounds, soft, no peritoneal signs. Absent: distended, tenderness - Extremities Exam Extremities exam: Present: warm, radial pulses palpable and symmetrical. Absent : calf tenderness, cyanotic, pedal edema - Neurological Exam Neurological exam: Present: CN II-XII intact, oriented X3, no focal deficits. Absent: pronater drift, facial droop, speech deficit - Skin Skin exam: Present: dry, intact - Assessment and Plan (1) Alcohol abuse Current Visit: Yes Status: Acute Assessment and Plan: Patient states he has a past history of alcohol use mostly during times of stress. He recently has experienced several life stressors including loss of job loss of relationship and financial debt. He states apraxia year ago he did experience a seizure secondary to alcohol withdrawal. We will place on seizure precautions Continue with CIWA will decrease librium Banana bag IV daily Zofran as needed for nausea Advance diet as tolerated Continue with IV fluids Monitor electrolytes and replace (2) Hypomagnesemia Current Visit: Yes Status: Acute Assessment and Plan: Replace and monitor (3) Suicidal ideation Current Visit: Yes Status: Acute Assessment and Plan: 1 patient states that he had been experiencing suicidal ideation and depression he has had several life stressors including loss of job ending a relationship as well as financial debt. He attempted to cut his neck and sustained a superficial laceration to his neck. We will consult psychiatry once patient is medically stable 02/09 we will start lexapro and depakote per psych recommendations- will require inpatient psych upon discharge (4) Hyponatremia Current Visit: Yes Status: Acute Assessment and Plan: Improved cont to monitor - Time Spent with Patient Total time spent is greater than 50% in coordination of care (as documented) at patient's floor/unit and/or counseling patient: Internal Medicine: Result - Labs CBC & Chem 7: 02/09/18 05:28 02/09/18 05:28 Labs: Short CBC 02/09/18 Range/Units 05:28 WBC 4.6 (4.3-11.1) K/mcL Hgb 12.4 L D (12.9-16.9) g/dL Hct 36.7 L (37.5-50.1) % Plt Count 96 L (140-400) K/mcL Neutrophils # 2.5 (1.6-8.9) K/mcL BMP 02/09/18 05:28 Sodium 139 Potassium 3.6 Chloride 106 Carbon Dioxide 24 BUN 9 Creatinine 0.70 Glucose 90 Calcium 8.8 Consult Discharge Plan - Plan Referrals: NONE,PCP [Primary Care Provider] -
[2018-02-09] MEDS: Divalproex (12 HR) 250 MG TABLET PO SCH (20:36)
[2018-02-10] MEDS: *HR* Promethazine 25 MG/ML VIAL IVP PRN ×3 (01:58→16:38)
[2018-02-10] MEDS: *HR* LORazepam 2 MG/ML VIAL IVP PRN ×2 (05:06→09:22)
[2018-02-10 06:29] LABS: Basophils % 0.6 %; Eosinophils # 0.3 K/mcL (0.0-0.6); Eosinophils % 4.6 %; Hematocrit 34.8 % (37.5-50.1); Hemoglobin 11.5 g/dL (12.9-16.9); Immature Granulocytes % 0.6 % (0-4); Lymphocytes # 1.7 K/mcL (0.6-4.6); Lymphocytes % 30.7 %; Mean Corpuscular Hemoglobin 27.8 pg (28.0-33.3); Mean Corpuscular Volume 84.3 fL (83.0-100.0); Mean Platelet Volume 10.3 fL (9.4-12.4); Monocytes # 0.6 K/mcL (0.0-1.3); Monocytes % 11.6 %; Neutrophils # 2.8 K/mcL (1.6-8.9); Platelet Count 112 K/mcL (140-400); Red Blood Count 4.13 M/mcL (4.19-5.50); Red Cell Distribution Width 15.1 % (11.5-14.5); Segmented Neutrophils % 51.9 %
[2018-02-10 06:57] LABS: BUN/Creatinine Ratio 14 (6-26); Blood Urea Nitrogen 10 mg/dL (6-20); Calcium 9.1 mg/dL (8.6-10.3); Carbon Dioxide 24 mEq/L (23-29); Chloride 105 mEq/L (98-107); Glucose 95 mg/dL (70-105); Osmolality,Calculated 285 (280-300); Potassium 3.7 mEq/L (3.5-5.1); Sodium 138 mEq/L (136-145); eGFR For Non-African Americans > 60 (> 60)
[2018-02-10] MEDS: Divalproex (12 HR) 250 MG TABLET PO SCH ×2 (09:05→21:39)
--- NOTE | 2018-02-10 16:08 | Internal Med Progress Note ---
Hospitalist Progress Note - Encounter Date of Encounter: 02/10/18 Time of Encounter: 10:00 - Subjective Interval History: Patient seen and examined at bedside- patient states that he feels very tired and continues to experience some tremors denies any hallucinations or suicidal ideations at this time. States he has nausea however is been tolerating breakfast. - Exam Vitals: Temp Pulse Resp BP Pulse Ox 98.3 F 99 18 140/66 100 02/10/18 12:00 02/10/18 12:00 02/10/18 12:00 02/10/18 12:00 02/10/18 12:00 Exam: General appearance: Present: A&O X 3 Exam: - Head Head exam: Present: atraumatic, normocephalic - Eye Eye exam: Present: PERRL, conjuntiva pink, sclera anicteric Pupils: Present: PERRL - Neck Neck exam general surgery: Present: supple, trachea midline. Absent: lymphadenopathy - Respiratory Respiratory exam: Present: CTAB. Absent: accessory muscle use, rales, rhonchi, wheezes - Cardiovascular Cardiovascular exam: Present: RRR, +S1, +S2. Absent: diastolic murmur, gallop, rubs, systolic murmur - GI/Abdominal GI/Abdominal exam: Present: normal bowel sounds, soft, no peritoneal signs. Absent: distended, tenderness - Extremities Exam Extremities exam: Present: warm, radial pulses palpable and symmetrical. Absent : calf tenderness, cyanotic, pedal edema - Neurological Exam Neurological exam: Present: CN II-XII intact, oriented X3, no focal deficits. Absent: pronater drift, facial droop, speech deficit - Skin Skin exam: Present: dry, intact - Assessment and Plan (1) Alcohol abuse Current Visit: Yes Status: Acute Assessment and Plan: Patient states he has a past history of alcohol use mostly during times of stress. He recently has experienced several life stressors including loss of job loss of relationship and financial debt. He states apraxia year ago he did experience a seizure secondary to alcohol withdrawal. We will place on seizure precautions Continue with CIWA Continue with Librium and titrate down Banana bag IV -converted to orals in the a.m. Zofran as needed for nausea Advance diet as tolerated Monitor electrolytes and replace (2) Hypomagnesemia Current Visit: Yes Status: Acute Assessment and Plan: Replace and monitor (3) Suicidal ideation Current Visit: Yes Status: Acute Assessment and Plan: 1 patient states that he had been experiencing suicidal ideation and depression he has had several life stressors including loss of job ending a relationship as well as financial debt. He attempted to cut his neck and sustained a superficial laceration to his neck. We will consult psychiatry once patient is medically stable 02/09 we will start lexapro and depakote per psych recommendations- will require inpatient psych upon discharge 02/10 continue with Lexapro and Depakote-psych has been consult and will require inpatient psych upon discharge (4) Hyponatremia Current Visit: Yes Status: Acute Assessment and Plan: Improved cont to monitor - Time Spent with Patient Total time spent is greater than 50% in coordination of care (as documented) at patient's floor/unit and/or counseling patient: Internal Medicine: Result - Labs CBC & Chem 7: 02/10/18 05:37 02/10/18 05:37 Labs: Short CBC 02/10/18 Range/Units 05:37 WBC 5.4 (4.3-11.1) K/mcL Hgb 11.5 L (12.9-16.9) g/dL Hct 34.8 L (37.5-50.1) % Plt Count 112 L (140-400) K/mcL Neutrophils # 2.8 (1.6-8.9) K/mcL BMP 02/10/18 05:37 Sodium 138 Potassium 3.7 Chloride 105 Carbon Dioxide 24 BUN 10 Creatinine 0.69 L Glucose 95 Calcium 9.1 Consult Discharge Plan - Plan Referrals: NONE,PCP [Primary Care Provider] -
[2018-02-10] MEDS: Thiamine (B-1) 100 MG, Folic Acid 1 MG, MVI, adult with vitamin K 10 ML in 0.9 % Sodi... IVPB SCH (17:50)
[2018-02-11] MEDS: *HR* Promethazine 25 MG/ML VIAL IVP PRN (02:08)
[2018-02-11] MEDS: *HR* LORazepam 2 MG/ML VIAL IVP PRN ×2 (02:09→23:35)
[2018-02-11 06:14] LABS: Basophils # 0.1 K/mcL (0.0-0.2); Basophils % 0.9 %; Eosinophils # 0.3 K/mcL (0.0-0.6); Eosinophils % 4.5 %; Hematocrit 37.3 % (37.5-50.1); Hemoglobin 12.2 g/dL (12.9-16.9); Immature Granulocytes % 0.7 % (0-4); Lymphocytes # 1.6 K/mcL (0.6-4.6); Lymphocytes % 29.1 %; Mean Corpuscular HGB Conc 32.7 g/dL (31.6-35.5); Mean Corpuscular Hemoglobin 27.9 pg (28.0-33.3); Mean Corpuscular Volume 85.2 fL (83.0-100.0); Monocytes # 0.7 K/mcL (0.0-1.3); Monocytes % 12.8 %; Neutrophils # 2.9 K/mcL (1.6-8.9); Platelet Count 143 K/mcL (140-400); Red Blood Count 4.38 M/mcL (4.19-5.50); Red Cell Distribution Width 14.9 % (11.5-14.5)
[2018-02-11 06:31] LABS: BUN/Creatinine Ratio 19 (6-26); Blood Urea Nitrogen 13 mg/dL (6-20); Calcium 9.8 mg/dL (8.6-10.3); Carbon Dioxide 25 mEq/L (23-29); Chloride 106 mEq/L (98-107); Glucose 106 mg/dL (70-105); Osmolality,Calculated 289 (280-300); Potassium 3.8 mEq/L (3.5-5.1); Sodium 139 mEq/L (136-145); eGFR For Non-African Americans > 60 (> 60)
[2018-02-11] MEDS: Divalproex (12 HR) 250 MG TABLET PO SCH ×2 (07:52→20:10)
[2018-02-11] MEDS: Folic Acid 1 MG TABLET PO SCH (07:52)
[2018-02-11] MEDS: Thiamine (B-1) 100 MG TABLET PO SCH (07:52)
--- NOTE | 2018-02-11 14:34 | Internal Med Progress Note ---
Hospitalist Progress Note - Encounter Date of Encounter: 02/11/18 Time of Encounter: 14:32 - Subjective Interval History: Pt seen and examined in the room. He has a sitter. He reported mild anxiety. No chest pain, sob, or syncope. - Exam Vitals: Temp Pulse Resp BP Pulse Ox 97.5 F L 78 17 136/88 97 02/11/18 11:00 02/11/18 13:17 02/11/18 11:00 02/11/18 13:17 02/11/18 11:00 Exam: PHYSICAL EXAMINATION: GENERAL APPEARANCE: The patient is alert, oriented and in no acute distress. HEENT: Head is normocephalic. The sinuses are nontender. Pupils are equal and reactive. The nares are patent. Oropharynx clear without lesions. NECK: Supple without lymphadenopathy. HEART: Regular rate and rhythm. LUNGS: No crackles or wheezes are heard. ABDOMEN: Soft, nontender, nondistended with good bowel sounds heard. Inguinal area is normal. EXTREMITIES: Without cyanosis, clubbing or edema. NEUROLOGICAL: Gross nonfocal. SKIN: Warm and dry without any rash. - Assessment and Plan (1) Suicidal ideation Current Visit: Yes Status: Acute Assessment and Plan: 1 patient states that he had been experiencing suicidal ideation and depression he has had several life stressors including loss of job ending a relationship as well as financial debt. He attempted to cut his neck and sustained a superficial laceration to his neck. We will consult psychiatry once patient is medically stable 02/09 we will start lexapro and depakote per psych recommendations- will require inpatient psych upon discharge 02/10 continue with Lexapro and Depakote-psych has been consult and will require inpatient psych upon discharge. 02/11 Continue Librium, Still having high CIWA score. Awaiting transferring to inpt psych unit. (2) Alcohol abuse Current Visit: Yes Status: Acute Assessment and Plan: Patient states he has a past history of alcohol use mostly during times of stress. He recently has experienced several life stressors including loss of job loss of relationship and financial debt. He states Zypraxa year ago he did experience a seizure secondary to alcohol withdrawal. We will place on seizure precautions Continue with CIWA Continue with Librium and titrate down Banana bag IV -converted to orals in the a.m. Zofran as needed for nausea Advance diet as tolerated Monitor electrolytes and replace (3) Hypomagnesemia Current Visit: Yes Status: Resolved (4) Hyponatremia Current Visit: Yes Status: Resolved Assessment and Plan: - Time Spent with Patient Total time spent is greater than 50% in coordination of care (as documented) at patient's floor/unit and/or counseling patient: Greater than 35 minutes Plan of Care Discussed with: patient Internal Medicine: Result - Labs CBC & Chem 7: 02/11/18 05:06 02/11/18 05:06 Labs: Short CBC 02/11/18 Range/Units 05:06 WBC 5.5 (4.3-11.1) K/mcL Hgb 12.2 L (12.9-16.9) g/dL Hct 37.3 L (37.5-50.1) % Plt Count 143 (140-400) K/mcL Neutrophils # 2.9 (1.6-8.9) K/mcL BMP 02/11/18 05:06 Sodium 139 Potassium 3.8 Chloride 106 Carbon Dioxide 25 BUN 13 Creatinine 0.67 L Glucose 106 H Calcium 9.8 Consult Discharge Plan - Plan Referrals: NONE,PCP [Primary Care Provider] -
[2018-02-12] MEDS: *HR* LORazepam 2 MG/ML VIAL IVP PRN (04:33)
[2018-02-12] MEDS: Divalproex (12 HR) 250 MG TABLET PO SCH ×2 (08:12→21:16)
[2018-02-12] MEDS: Folic Acid 1 MG TABLET PO SCH (08:12)
[2018-02-12] MEDS: Thiamine (B-1) 100 MG TABLET PO SCH (08:12)
--- NOTE | 2018-02-12 12:17 | Electrocardiograph Report ---
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
--- NOTE | 2018-02-12 12:33 | Electrocardiograph Report ---
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
--- NOTE | 2018-02-12 13:07 | Consult Note ---
Date of Encounter: 02/12/18 Time of Encounter: 12:30 Assessment & Recommendation (1) Suicidal ideation Current visit: Yes Status: Acute (2) Alcohol withdrawal Current visit: Yes Status: Acute Qualifiers: Qualified Code(s): F10.232 - Alcohol dependence with withdrawal with perceptual disturbance (3) Major depress dis, severe Current visit: Yes Status: Acute (4) Alcohol dependence Current visit: Yes Status: Acute Qualifiers: Substance use status: uncomplicated Qualified Code(s): F10.20 - Alcohol dependence, uncomplicated History of Present Illness Patient: known to practice within the last 3 years Requesting Physician: Kt Caicedo MD Reason for consult: follow up History of present illness: Mr. Merino is a 42 year old male was sleeping and as per nurse had not slept all night and went to sleep now so did not wanted to wake him , his vitals are still high once he has stable vital and ciwa improved and on oral meds , he can be discharged to for his depression , si and continuity of care. CC: Kt Caicedo MD Past Med Surg Social Fam HX - Past Medical History Medical history: hypertension - Social History Smoking Status: Never smoker Alcohol use: heavy, recent Drug use: none Medications & Allergies No Known Home Drugs 02/08/18 [History] 3 Allergy/AdvReac Type Severity Reaction Status Date / Time No Known Allergies Allergy Verified 02/08/18 01:12 Review of Systems Psychiatric: Reports: depression, anxiety, suicidal ideation Psychiatry Exam - Constitutional Vitals: Temp Pulse Resp BP Pulse Ox 98.8 F 116 17 152/92 99 02/12/18 06:54 02/12/18 06:54 02/12/18 06:54 02/12/18 06:54 02/12/18 06:54 General appearance: other (Patient was not assessed as was sleeping) Results - Labs Labs: Laboratory Last Values WBC 5.5 K/mcL (4.3-11.1) 02/11/18 05:06 RBC 4.38 M/mcL (4.19-5.50) 02/11/18 05:06 Hgb 12.2 g/dL (12.9-16.9) L 02/11/18 05:06 Hct 37.3 % (37.5-50.1) L 02/11/18 05:06 MCV 85.2 fL (83.0-100.0) 02/11/18 05:06 MCH 27.9 pg (28.0-33.3) L 02/11/18 05:06 MCHC 32.7 g/dL (31.6-35.5) 02/11/18 05:06 RDW 14.9 % (11.5-14.5) H 02/11/18 05:06 Plt Count 143 K/mcL (140-400) 02/11/18 05:06 MPV 10.0 fL (9.4-12.4) 02/11/18 05:06 Immature Gran % 0.7 % (0-4) 02/11/18 05:06 Seg Neutrophils % 52.0 % 02/11/18 05:06 Lymphocytes % 29.1 % 02/11/18 05:06 Monocytes % 12.8 % 02/11/18 05:06 Eosinophils % 4.5 % 02/11/18 05:06 Basophils % 0.9 % 02/11/18 05:06 Neutrophils # 2.9 K/mcL (1.6-8.9) 02/11/18 05:06 Lymphocytes # 1.6 K/mcL (0.6-4.6) 02/11/18 05:06 Monocytes # 0.7 K/mcL (0.0-1.3) 02/11/18 05:06 Eosinophils # 0.3 K/mcL (0.0-0.6) 02/11/18 05:06 Basophils # 0.1 K/mcL (0.0-0.2) 02/11/18 05:06 Platelet Estimate Slight Decrease (Normal) L 02/09/18 05:28 Immature Plt Fraction 5.1 % (1.1-6.1) 02/09/18 05:28 Sodium 139 mEq/L (136-145) 02/11/18 05:06 Potassium 3.8 mEq/L (3.5-5.1) 02/11/18 05:06 Chloride 106 mEq/L (98-107) 02/11/18 05:06 Carbon Dioxide 25 mEq/L (23-29) 02/11/18 05:06 BUN 13 mg/dL (6-20) 02/11/18 05:06 Creatinine 0.67 mg/dL (0.70-1.30) L 02/11/18 05:06 Est GFR ( Amer) > 60 (> 60) 02/11/18 05:06 Est GFR (Non-Af Amer) > 60 (> 60) 02/11/18 05:06 BUN/Creatinine Ratio 19 (6-26) 02/11/18 05:06 Glucose 106 mg/dL (70-105) H 02/11/18 05:06 Calculated Osmolality 289 (280-300) 02/11/18 05:06 Calcium 9.8 mg/dL (8.6-10.3) 02/11/18 05:06 Phosphorus 3.9 mg/dL (2.7-4.5) 02/08/18 01:44 Magnesium 1.6 mg/dL (1.6-2.6) 02/10/18 05:37 Urine Color Yellow (Yellow) 02/08/18 02:10 Urine Clarity Clear (Clear) 02/08/18 02:10 Urine pH 6.0 pH Units (5.0-8.0) 02/08/18 02:10 Ur Specific [place] < 1.005 (1.010-1.025) L 02/08/18 02:10 Urine Protein 100 mg/dL (Neg-Trace) H 02/08/18 02:10 Urine Glucose (UA) Normal mg/dL (Normal) 02/08/18 02:10 Urine Ketones Negative mg/dL (Negative) 02/08/18 02:10 Urine Blood Moderate (Negative) H 02/08/18 02:10 Urine Nitrite Negative (Negative) 02/08/18 02:10 Urine Bilirubin Negative (Negative) 02/08/18 02:10 Urine Urobilinogen Normal mg/dL (Normal) 02/08/18 02:10 Ur Leukocyte Esterase Negative (Negative) 02/08/18 02:10 Urine Bacteria Few per hpf (None-Few) 02/08/18 02:10 Salicylates < 2.5 mg/dL (15.0-30.0) L 02/08/18 01:44 Urine Opiates Screen Negative ng/mL (Bafmpr=791) 02/08/18 02:10 Acetaminophen < 10 mcg/mL (10-20) L 02/08/18 01:44 Ur Barbiturates Screen Negative ng/mL (Dsukpw=554) 02/08/18 02:10 Ur Phencyclidine Scrn Negative ng/mL (Cutoff=25) 02/08/18 02:10 Ur Amphetamines Screen Negative ng/mL (Cbrixl=7468) 02/08/18 02:10 U Benzodiazepines Scrn Negative ng/mL (Sgercy=683) 02/08/18 02:10 Urine Cocaine Screen Negative ng/mL (Cutoff= 300) 02/08/18 02:10 U Marijuana (THC) Screen Negative ng/mL (Cutoff = 50) 02/08/18 02:10 Ur Drug Screen Interp See Below 02/08/18 02:10 Ethyl Alcohol 317 mg/dL (Less than 10) H 02/08/18 01:44 Consult Discharge Plan - Plan Referrals: NONE,PCP [Primary Care Provider] -
--- NOTE | 2018-02-12 17:23 | Internal Med Progress Note ---
Hospitalist Progress Note - Encounter Date of Encounter: 02/12/18 Time of Encounter: 17:21 - Subjective Interval History: Pt seen and examined in the room. He has a sitter. He reported mild anxiety. No chest pain, sob, or syncope. - Exam Vitals: Temp Pulse Resp BP Pulse Ox 98.2 F 91 16 116/81 98 02/12/18 13:32 02/12/18 13:32 02/12/18 13:32 02/12/18 13:32 02/12/18 13:32 Exam: PHYSICAL EXAMINATION: GENERAL APPEARANCE: The patient is alert, oriented and in no acute distress. HEENT: Head is normocephalic. The sinuses are nontender. Pupils are equal and reactive. The nares are patent. Oropharynx clear without lesions. NECK: Supple without lymphadenopathy. HEART: Regular rate and rhythm. LUNGS: No crackles or wheezes are heard. ABDOMEN: Soft, nontender, nondistended with good bowel sounds heard. Inguinal area is normal. EXTREMITIES: Without cyanosis, clubbing or edema. NEUROLOGICAL: Gross nonfocal. SKIN: Warm and dry without any rash. - Assessment and Plan (1) Suicidal ideation Current Visit: Yes Status: Acute Assessment and Plan: 1 patient states that he had been experiencing suicidal ideation and depression he has had several life stressors including loss of job ending a relationship as well as financial debt. He attempted to cut his neck and sustained a superficial laceration to his neck. We will consult psychiatry once patient is medically stable 02/09 we will start lexapro and depakote per psych recommendations- will require inpatient psych upon discharge 02/10 continue with Lexapro and Depakote-psych has been consult and will require inpatient psych upon discharge. 02/11 Continue Librium, Still having high CIWA score. Awaiting transferring to inpt psych unit. 02/12 feeling better, will transfer once bed available. (2) Alcohol abuse Current Visit: Yes Status: Acute Assessment and Plan: Patient states he has a past history of alcohol use mostly during times of stress. He recently has experienced several life stressors including loss of job loss of relationship and financial debt. He states Zypraxa year ago he did experience a seizure secondary to alcohol withdrawal. We will place on seizure precautions Continue with CIWA Continue with Librium and titrate down Banana bag IV -converted to orals in the a.m. Zofran as needed for nausea Advance diet as tolerated Monitor electrolytes and replace (3) Hypomagnesemia Current Visit: Yes Status: Resolved Assessment and Plan: (4) Hyponatremia Current Visit: Yes Status: Resolved Assessment and Plan: - Time Spent with Patient Total time spent is greater than 50% in coordination of care (as documented) at patient's floor/unit and/or counseling patient: Greater than 35 minutes Plan of Care Discussed with: patient Internal Medicine: Result - Labs CBC & Chem 7: 02/11/18 05:06 02/11/18 05:06 Consult Discharge Plan - Plan Referrals: NONE,PCP [Primary Care Provider] -
[2018-02-12] MEDS: *HR* Promethazine 25 MG/ML VIAL IVP PRN (23:59)
[2018-02-13] MEDS: Thiamine (B-1) 100 MG TABLET PO SCH (09:08)
[2018-02-13] MEDS: Divalproex (12 HR) 250 MG TABLET PO SCH (09:08)
[2018-02-13] MEDS: Folic Acid 1 MG TABLET PO SCH (09:08)
--- NOTE | 2018-02-13 10:05 | Internal Med Progress Note ---
Hospitalist Progress Note - Encounter Date of Encounter: 02/13/18 Time of Encounter: 10:03 - Subjective Interval History: Pt seen and examined in the room. He has a sitter. He reported mild anxiety. No chest pain, sob, or syncope. - Exam Vitals: Temp Pulse Resp BP Pulse Ox 98.5 F 94 16 137/81 94 02/13/18 07:00 02/13/18 07:00 02/13/18 07:00 02/13/18 07:00 02/13/18 07:00 Exam: PHYSICAL EXAMINATION: GENERAL APPEARANCE: The patient is alert, oriented and in no acute distress. HEENT: Head is normocephalic. The sinuses are nontender. Pupils are equal and reactive. The nares are patent. Oropharynx clear without lesions. NECK: Supple without lymphadenopathy. HEART: Regular rate and rhythm. LUNGS: No crackles or wheezes are heard. ABDOMEN: Soft, nontender, nondistended with good bowel sounds heard. Inguinal area is normal. EXTREMITIES: Without cyanosis, clubbing or edema. NEUROLOGICAL: Gross nonfocal. SKIN: Warm and dry without any rash. - Assessment and Plan (1) Suicidal ideation Current Visit: Yes Status: Acute Assessment and Plan: 1 patient states that he had been experiencing suicidal ideation and depression he has had several life stressors including loss of job ending a relationship as well as financial debt. He attempted to cut his neck and sustained a superficial laceration to his neck. We will consult psychiatry once patient is medically stable 02/09 we will start lexapro and depakote per psych recommendations- will require inpatient psych upon discharge 02/10 continue with Lexapro and Depakote-psych has been consult and will require inpatient psych upon discharge. 02/11 Continue Librium, Still having high CIWA score. Awaiting transferring to inpt psych unit. 02/12 feeling better, will transfer once bed available. 02/13 feeling better, mod anxiety, will transfer to today if possible. (2) Alcohol abuse Current Visit: Yes Status: Acute Assessment and Plan: Patient states he has a past history of alcohol use mostly during times of stress. He recently has experienced several life stressors including loss of job loss of relationship and financial debt. He states Zypraxa year ago he did experience a seizure secondary to alcohol withdrawal. We will place on seizure precautions Continue with CIWA Continue with Librium and titrate down Banana bag IV -converted to orals in the a.m. Zofran as needed for nausea Advance diet as tolerated Monitor electrolytes and replace (3) Hypomagnesemia Current Visit: Yes Status: Resolved (4) Hyponatremia Current Visit: Yes Status: Resolved DVT Prophylaxis: ambulating. - Time Spent with Patient Total time spent is greater than 50% in coordination of care (as documented) at patient's floor/unit and/or counseling patient: Greater than 35 minutes Plan of Care Discussed with: patient Internal Medicine: Result - Labs CBC & Chem 7: 02/11/18 05:06 02/11/18 05:06 Consult Discharge Plan - Plan Referrals: NONE,PCP [Primary Care Provider] -
[2018-02-13 15:12] VITALS: BP 130/84
--- NOTE | 2018-02-13 18:42 | Discharge Summary ---
Date of Encounter: 02/13/18 Time of Encounter: 18:37 - Discharge Diagnosis (1) Suicidal ideation Priority: Primary Status: Acute (2) Alcohol abuse Priority: Primary Status: Acute (3) Hypomagnesemia Priority: Primary Status: Resolved (4) Hyponatremia Priority: Primary Status: Resolved (5) Anxiety Priority: Primary Status: Acute (6) Major depress dis, severe Priority: Primary Status: Acute Hospital course: Mr. Merino is a 42 year old male patient presented to the emergency department with suicidal ideations and worsening depression. He has had significant life stressors including loss of job financial dad and brachial pulses girlfriend. For the past 16 days he has been drinking half a gallon of vodka a day. He has been experiencing hallucinations stating he is seeing demons running around. He has had suicidal thoughts and attempted to cut his neck. He did present to the emergency department with a superficial laceration to his neck. He denies any recreational drug use or cigarette smoking. He admits that his drinking has been cyclic and occurs mostly when he is depressed. He states that he did have an episode of seizures secondary to alcohol withdrawal approximately a year or so ago. Initial tox screen does show alcohol level 317. Lab work did show slight hyponatremia and hypomagnesemia. He was given IV fluid as well as magnesium IV. Currently patient complains of nausea denies any hallucinations at this time. Nursing staff reports that he is required supplemental Ativan based CIWA scale. Patient was admitted for alcohol abuse and suicidal attempts. He was started on CIWA protocol and Librium. Sitter was ordered. His symptoms have improved with treatment. CIWA score was low currently and he does not need ativan. However, Pt still having anxiety and psych was consulted. Inpatient pysch treatment was recommended. Pt will be transferred to 1A inpatient psych unit today for further management. Discharge discussed with: patient Time spent discussing smoking cessation with patient: more than 10 minutes - Time Spent with Patient Total time spent providing and/or coordinating discharge services: Greater than 30 minutes - Discharge Medications Home Medications: Divalproex (12 HR) [Depakote (12 HR)] 250 mg PO BID tablet. 02/13/18 [Rx] Escitalopram [Lexapro] 10 mg PO DAILY tablet 02/13/18 [Rx] Folic Acid 1 mg PO DAILY tablet 02/13/18 [Rx] HydrOXYzine 10 mg PO QID PRN tablet 02/13/18 [Rx] Naloxone [Narcan] 0.4 mg IVP Q2MIN PRN inj 02/13/18 [Rx] Promethazine [Phenergan] 12.5 mg IVP Q4HR PRN vial 02/13/18 [Rx] Thiamine (B-1) [Vitamin B-1] 100 mg PO DAILY tablet 02/13/18 [Rx] Allergies/Adverse Reactions: 3 Allergy/AdvReac Type Severity Reaction Status Date / Time No Known Allergies Allergy Verified 02/08/18 01:12 Date of admission: 02/08/18 04:29 Primary care physician: PCP NONE Consults: 02/08/18 08:42 Consult to Psychiatry [CONS] Routine Consulting Provider: Psychiatry Nely Reason consult: Sitter/1:1 [place] slip on chart [place] Slip initiated date and time: 02/08/18 0240 Anticipated date of discharge: 02/13/18 - Constitutional Vitals: Temp Pulse Resp BP Pulse Ox 97.6 F 86 15 130/84 98 02/13/18 15:00 02/13/18 15:00 02/13/18 15:00 02/13/18 15:00 02/13/18 15:00 General appearance: Present: A&O X 3 Exam: PHYSICAL EXAMINATION: GENERAL APPEARANCE: The patient is alert, oriented and in no acute distress. HEENT: Head is normocephalic. The sinuses are nontender. Pupils are equal and reactive. The nares are patent. Oropharynx clear without lesions. NECK: Supple without lymphadenopathy. HEART: Regular rate and rhythm. LUNGS: No crackles or wheezes are heard. ABDOMEN: Soft, nontender, nondistended with good bowel sounds heard. Inguinal area is normal. EXTREMITIES: Without cyanosis, clubbing or edema. NEUROLOGICAL: Gross nonfocal. SKIN: Warm and dry without any rash. - Patient Status Disposition: Transfer Psychiatric Hosp Condition: Fair Functional capacity at discharge: independent ambulation Overall status at discharge: patient is progressing back to baseline - Discharge Instructions Follow Up With: NONE,PCP [Primary Care Provider] - - Diet and Activity Activity: increase activity as tolerated Diet: advance to your usual diet
== END 2018-02-13 19:50 ==
LOC: EMEROOARM 01:07 → 3BNU 01:07
PROVIDERS: ADMIT Pediatrics; ATTEND Pediatrics

== ENCOUNTER 2018-02-13 19:47 | Inpatient (IN) ==
[2018-02-13] MEDS ORDERED: *HR* LORazepam 2 MG/ML VIAL IM PRN (20:42)
[2018-02-13] MEDS ORDERED: Mag Hydrox/Al Hydrox/Simeth 30 ML UDC PO PRN (20:42)
[2018-02-13] MEDS ORDERED: *HR* LORazepam 1 MG TABLET PO PRN (20:42)
[2018-02-13] MEDS ORDERED: Haloperidol Lactate 5 MG/ML VIAL IM PRN (20:42)
[2018-02-13] MEDS ORDERED: Ibuprofen 400 MG TABLET PO PRN (20:42)
[2018-02-13] MEDS ORDERED: MOM Conc 10 ML UD.LIQ PO PRN (20:42)
[2018-02-13] MEDS: Divalproex (12 HR) 250 MG TABLET PO SCH (22:16)
[2018-02-13] MEDS: hydrOXYzine pamoate 25 MG CAPSULE PO PRN (22:16)
[2018-02-13] MEDS: traZODone 50 MG TABLET PO PRN (22:17)
[2018-02-14] MEDS: Folic Acid 1 MG TABLET PO SCH (09:39)
[2018-02-14] MEDS: Thiamine (B-1) 100 MG TABLET PO SCH (09:39)
[2018-02-14] MEDS: cloNIDine HCl 0.1 MG TABLET PO SCH ×2 (09:39→20:27)
[2018-02-14] MEDS: Divalproex (12 HR) 250 MG TABLET PO SCH ×2 (09:39→20:27)
--- NOTE | 2018-02-14 11:59 | Psychiatry History & Physical ---
Date of Encounter: 02/14/18 Time of Encounter: 11:05 History of Present Illness Patient Stated Chief Complaint: i feel better now Medicare Admission Attestation: For traditional Medicare patients the provided hospital inpatient services are reasonable and necessary and in the case of services not specified as inpatient -only under 42 CFR 419.22 (n), that they are appropriately provided as inpatient services in accordance 42 CFR 412.3. For Critical Access Hospital the patient may reasonably be expected to be discharged or transferred to a hospital within 96 hours after admission to the Critical Access Hospital. Admitted From: Intrahospital Transfer Plans for Post Hospital Care: Home History of Present Illness: Mr. Merino is a 42 year old male evaluated today , he was consulted on medical floor for suicidal thoughts and alcohol use . He was seen and he remained suicidal and once withdrawal stabilized was transfered to inpatient psych. He has h/o DT and this time he tried to cut his neck and had superficial wound but caleed 911 for help. he had been drinking vodka half gallon for continous 17 days until came here, states i do binge drinking i go 30-60 days without drinking and then i am on binge for 1-2 weeks.he has no prior treatment for alcohol use disorder. states i ran out of food and alcohol , states i cut my self , i did not wanted to kill myself therefore i asked for help. 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 was with her for 2 years as she had enough, states she knows i am here and is supportive. at present has some anxiety and mind racing and is anxious , states when i am alone then all s/s come and denies any si in past . pAST PSYCH : dENIES ANY TREATMENT FOR DEPRESSION/ANXIETY BUT HAS BEEN been for Alcohol DEtox and last time had seizure. Subs. Use : no street drugs , Alcohol in binges , duration increased lately. drinks hard liquor only. cig. none Medical : denies any , h/o DT. Family h/o: strong on both side of family , parents were not alcoholics but grand parents, uncle, aunts and uncle alcohol and substance. no sicide in family. A/P MDD Severe with suicidal ideation Alcohol Use Disorder. Plan Inpatient hospitalization for safety , continue antidepresant and depakote, will add Naltrexone , patient has been to AA . Past Med Surg Social Fam HX - Past Medical History Medical history: hypertension - Past Psychiatric History Psychiatric history: Reports: no psych history Family psychiatric history: No Family History of Suicide: None - Social History Smoking Status: Never smoker Alcohol use: heavy, recent Drug use: none Medications & Allergies Divalproex (12 HR) [Depakote (12 HR)] 250 mg PO BID tablet. 02/13/18 [Rx] Escitalopram [Lexapro] 10 mg PO DAILY tablet 02/13/18 [Rx] Folic Acid 1 mg PO DAILY tablet 02/13/18 [Rx] HydrOXYzine 10 mg PO QID PRN tablet 02/13/18 [Rx] Naloxone [Narcan] 0.4 mg IVP Q2MIN PRN inj 02/13/18 [Rx] Promethazine [Phenergan] 12.5 mg IVP Q4HR PRN vial 02/13/18 [Rx] Thiamine (B-1) [Vitamin B-1] 100 mg PO DAILY tablet 02/13/18 [Rx] 3 Allergy/AdvReac Type Severity Reaction Status Date / Time No Known Allergies Allergy Verified 02/08/18 01:12 Review of Systems Psychiatric: Reports: depression, anxiety, suicidal ideation, difficulty concentrating Exam - HEENT Head exam IM: Present: atraumatic Eye exam IM: Present: EOMI, normal appearance, PERRL ENT exam IM: Present: normal exam - Neurological Neurological exam: Present: CN II-XII intact - Respiratory Respiratory exam IM: Present: CTAB - GI/Abdominal GI/Abdominal exam IM: Present: normal bowel sounds, soft. Absent: tenderness - Extremities Extremities exam IM: Present: full ROM - Skin Skin exam IM: Present: dry, warm - Constitutional Vitals: Temp Pulse Resp BP 97.2 F L 62 20 122/81 02/14/18 09:00 02/14/18 09:00 02/14/18 09:00 02/14/18 09:00 General appearance: age & developmentally appropriate, well-groomed, well- nourished - Musculoskeletal Gait: normal Station: relaxed Strength & Tone: normal for patient - Psychiatric Patient Orientation: Yes Person, Yes Time, Yes Place Level of alertness: Alert Behavior: calm, cooperative Psychomotor activity: Normal Eye Contact: Maintains Eye Contact Mood Description: Anxious Affect description: congruent with mood Speech Volume: Normal Speech pattern: normal rate, normal rhythm, normal tone Language & Vocabulary: consistent with education Thought Process: Linear, Goal Oriented Thought Content: No Suicidal ideation, No Homicidal ideation, No Overt delusions Perceptual Disturbances: No Auditory hallucinations, No Visual hallucinations Attention Span Ability: Capable of Focused Attention Memory Description: Grossly Intact Patient Reliability: Reliable Historian Fund of knowledge: Yes abstraction ability, Yes average, Yes aware of current events Intelligence Estimate: Average Judgment: Fair Insight: Partial Assessment and Plan (1) Major depress dis, severe Current visit: No Status: Acute Plan: Admit inpatient for safety and stabilization, Close observation, Suicide Precautions per unit protocol, Encourage participation in unit milieu, Group Therapy, Monitor sleep, Monitor appetite, Secure weapons, Family/Supportive other meeting Risks, benefits, side effects, alternatives discussed w/pt: Yes Plans for Post Hospital Care: at Home (2) Alcohol use disorder Current visit: Yes Status: Acute Plan: Admit inpatient for safety and stabilization, Close observation, Suicide Precautions per unit protocol, Encourage participation in unit milieu, Group Therapy, Monitor sleep, Monitor appetite, Family/Supportive other meeting Risks, benefits, side effects, alternatives discussed w/pt: Yes Patient agreeable to treatment: Yes Plans for Post Hospital Care: at Home
[2018-02-14] MEDS: NALTREXONE HCL 50 MG TABLET PO SCH (12:58)
[2018-02-15] MEDS: NALTREXONE HCL 50 MG TABLET PO SCH (08:23)
[2018-02-15] MEDS: Thiamine (B-1) 100 MG TABLET PO SCH (08:23)
[2018-02-15] MEDS: Folic Acid 1 MG TABLET PO SCH (08:23)
[2018-02-15] MEDS: Divalproex (12 HR) 250 MG TABLET PO SCH ×2 (08:23→20:12)
[2018-02-15] MEDS: cloNIDine HCl 0.1 MG TABLET PO SCH ×2 (08:23→20:12)
[2018-02-15] MEDS: hydrOXYzine pamoate 25 MG CAPSULE PO PRN ×3 (09:34→20:13)
--- NOTE | 2018-02-15 12:14 | Psychiatry Progress Note ---
Date of Encounter: 02/15/18 Time of Encounter: 11:48 Subjective Interval history: Patient seen today , case d/w treatment team and patient states doing better , started Naltrexone 50 mg, his alt/ast are high will be monitored once outpatient , pt educated on his LFT, drinking and being on Naltrexone. he states his depression is getting better , he has been on antui depressant for 1 week now as was started on medical floor. states has seen improvement , i am more clear, i am not scattered. will decrease librium. start dc planning. Review of Systems Psychiatric: Reports: depression, anxiety Results - Vital Signs Vital Signs: Temp Pulse Resp BP 97.7 F 65 20 126/80 02/15/18 09:00 02/15/18 09:00 02/15/18 09:00 02/15/18 09:00 - Labs Labs: Laboratory Results - last 24 hr 02/14/18 02/14/18 17:36 17:36 AST 50 H ALT 101 H Assessment and Plan (1) Major depress dis, severe Current visit: No Status: Acute Risks, benefits, side effects, alternatives discussed w/pt: Yes (2) Alcohol use disorder Current visit: Yes Status: Acute Risks, benefits, side effects, alternatives discussed w/pt: Yes Patient agreeable to treatment: Yes Consult Discharge Plan - Plan Referrals: [facility] [Outside] - 03/08/18 10:15 am (The above appointment is with Dr. Flynn for outpatient psychiatric assessment and medication management services. Please arrive 10 minutes early to complete the check-in process. Please bring your insurance card (or [facility] award [facility]) and photo ID. If you are unable to keep this appointment, 24 hour business notice of cancellation is expected. If you miss your new patient appointment with any provider without providing appropriate notice, you cannot be re-scheduled for that service. The [facility] is the 1st building behind [facility] in [place], [place]. Please do not use GPS or mapping apps to locate the office, as they will take you to the wrong location. ) [facility] [Outside] - 02/22/18 2:15 pm (The above appointment is with Cortez Boone to establish in primary care and for Vivitrol assessment. Please arrive 15 minutes early for your new patient appointment to complete paperwork. You will meet with Gris first regarding your alcohol use history, and then will see Cortez. Please bring the following items with you: insurance card (if you do not have insurance bring proof of income to apply for the sliding fee scale), photo ID, and any medication you take in the original bottles. If you are unable to bring these items, your appointment will be rescheduled. If you are unable to keep this appointment, 24 hour business notice of cancellation is expected. If you miss your new patient appointment, you cannot be re-scheduled in this practice for 3 months. This practice does not prescribe narcotics or see [facility] benefit recipients. ) [facility] [Outside] - 02/22/18 8:00 am (To start substance abuse counseling services, please walk-in on 02/22/2018 at 8:00am. Bring your photo ID and proof of insurance. This appointment will last 2-3 hours.) Psychiatry Exam - Constitutional Vitals: Temp Pulse Resp BP 97.7 F 65 20 126/80 02/15/18 09:00 02/15/18 09:00 02/15/18 09:00 02/15/18 09:00 General appearance: age & developmentally appropriate - Musculoskeletal Gait: normal Station: other Strength & Tone: normal for patient - Psychiatric Patient Orientation: Yes Person, Yes Time, Yes Place Level of alertness: Alert Behavior: cooperative, anxious Psychomotor activity: Normal Eye Contact: Maintains Eye Contact Mood Description: Anxious Affect description: congruent with mood Speech Volume: Normal Speech pattern: clear, coherent Language & Vocabulary: consistent with education Thought Process: Intact Thought Content: Yes Intact Perceptual Disturbances: Yes Reacting to internal stimuli Attention Span Ability: Capable of Focused Attention Memory Description: Grossly Intact Patient Reliability: Reliable Historian Fund of knowledge: Yes average Intelligence Estimate: Average Judgment: Good Insight: Partial
[2018-02-15] MEDS: traZODone 50 MG TABLET PO PRN (20:13)
[2018-02-16] MEDS: Divalproex (12 HR) 250 MG TABLET PO SCH (08:49)
[2018-02-16] MEDS: Thiamine (B-1) 100 MG TABLET PO SCH (08:49)
[2018-02-16] MEDS: Folic Acid 1 MG TABLET PO SCH (08:49)
[2018-02-16] MEDS: NALTREXONE HCL 50 MG TABLET PO SCH (08:49)
[2018-02-16] MEDS: hydrOXYzine pamoate 25 MG CAPSULE PO PRN (08:52)
[2018-02-16] MEDS: cloNIDine HCl 0.1 MG TABLET PO SCH (08:52)
[2018-02-16 09:02] VITALS: BP 131/87
--- NOTE | 2018-02-16 10:12 | Discharge Summary ---
Date of Encounter: 02/16/18 Time of Encounter: 09:45 Diagnosis - Discharge Diagnosis (1) Major depress dis, severe Status: Acute Comments: patient improved and is stable , no si/hi. (2) Alcohol use disorder Status: Acute Comments: patient given refferal ,naltrexone started , patient has good insight. Medications - Discharge Medications Prescriptions: cloNIDine HCl [CloNIDine HCl] 0.1 mg PO BID #30 tablet Divalproex (12 HR) [Depakote (12 HR)] 250 mg PO BID #30 tablet. Escitalopram [Lexapro] 10 mg PO DAILY #14 tablet Naltrexone HCl 50 mg PO DAILY #30 tablet Folic Acid 1 mg PO DAILY tablet 02/13/18 [Rx] HydrOXYzine 10 mg PO QID PRN tablet 02/13/18 [Rx] Promethazine [Phenergan] 12.5 mg IVP Q4HR PRN vial 02/13/18 [Rx] Thiamine (B-1) [Vitamin B-1] 100 mg PO DAILY tablet 02/13/18 [Rx] Divalproex (12 HR) [Depakote (12 HR)] 250 mg PO BID #30 tablet. 02/16/18 [Rx] Escitalopram [Lexapro] 10 mg PO DAILY #14 tablet 02/16/18 [Rx] Naltrexone HCl 50 mg PO DAILY #30 tablet 02/16/18 [Rx] cloNIDine HCl [CloNIDine HCl] 0.1 mg PO BID #30 tablet 02/16/18 [Rx] 3 Allergy/AdvReac Type Severity Reaction Status Date / Time No Known Allergies Allergy Verified 02/08/18 01:12 Results Procedures and tests throughout hospitalization: Completed Lab Orders Category Date Time Status ALT [Alanine Aminotransferase] Stat Lab 02/14/18 17:36 Completed AST [Aspartate Amino Transferase] Stat Lab 02/14/18 17:36 Completed Provider Date of admission: 02/13/18 19:47 Primary care physician: PCP NONE Psychiatry Exam - Constitutional Vitals: Temp Pulse Resp BP 98.2 F 86 16 131/87 02/16/18 09:00 02/16/18 09:00 02/16/18 09:00 02/16/18 09:00 General appearance: age & developmentally appropriate, well-groomed, well- nourished - Musculoskeletal Gait: normal Station: relaxed Strength & Tone: normal for patient - Psychiatric Patient Orientation: Yes Person, Yes Time, Yes Place Level of alertness: Alert Behavior: calm, cooperative Psychomotor activity: Normal Eye Contact: Maintains Eye Contact Mood Description: Euthymic/stable Affect description: congruent with mood, full range Speech Volume: Normal Speech pattern: normal rate, normal rhythm, normal tone, fluent, spontaneous Language & Vocabulary: consistent with education Thought Process: Linear, Goal Oriented Thought Content: No Suicidal ideation, No Homicidal ideation, No Overt delusions Perceptual Disturbances: No Auditory hallucinations, No Visual hallucinations Attention Span Ability: Capable of Focused Attention Memory Description: Grossly Intact Patient Reliability: Reliable Historian Fund of knowledge: Yes abstraction ability, Yes aware of current events Intelligence Estimate: Average Judgment: Good Insight: Partial Hospital Course Hospital course: Mr. Merino is a 42 year old male was admitted from medical floor where he came with alcohol intoxication and withdrawal stabilization , he was suicidal with plan , once detoxification complete he was admitted to [facility] for depression and suicidal ideation , since he is here he is not having any suicide thoughts and depression has improved, he stated it was cry for help and educated about alcohol and not to take with medication, he has h/o binge drinking and he has gained insight and is motivated to get better, he was educated that his ast/alt are high and he is aware of Naltrexone side effects and educated to get lft check every 3 months till on naltrexone. denies side effect. will dc patient with his family and all refferal given. patient not in danger to self/others. Time spent discussing smoking cessation with patient: 3 to 10 minutes Does patient wish to continue nicotine replacement upon disc: No (patient does not smoke) - Time Spent with Patient Total time spent providing and/or coordinating discharge services: Greater than 30 minutes Assessment and Plan - Patient/Caregiver Discharge Instructions Activity: resume usual activities as tolerated Diet: regular diet - Follow up Plan Follow up with: [facility] [Outside] - 03/08/18 10:15 am (The above appointment is with Dr. Flynn for outpatient psychiatric assessment and medication management services. Please arrive 10 minutes early to complete the check-in process. Please bring your insurance card (or [facility] award [facility]) and photo ID. If you are unable to keep this appointment, 24 hour business notice of cancellation is expected. If you miss your new patient appointment with any provider without providing appropriate notice, you cannot be re-scheduled for that service. The [facility] is the 1st building behind [facility] in [place], [place]. Please do not use GPS or mapping apps to locate the office, as they will take you to the wrong location. ) [facility] [Outside] - 02/22/18 2:15 pm (The above appointment is with Cortez Boone to establish in primary care and for Vivitrol assessment. Please arrive 15 minutes early for your new patient appointment to complete paperwork. You will meet with Gris first regarding your alcohol use history, and then will see Cortez. Please bring the following items with you: insurance card (if you do not have insurance bring proof of income to apply for the sliding fee scale), photo ID, and any medication you take in the original bottles. If you are unable to bring these items, your appointment will be rescheduled. If you are unable to keep this appointment, 24 hour business notice of cancellation is expected. If you miss your new patient appointment, you cannot be re-scheduled in this practice for 3 months. This practice does not prescribe narcotics or see [facility] benefit recipients. ) [facility] [Outside] - 02/22/18 8:00 am (To start substance abuse counseling services, please walk-in on 02/22/2018 at 8:00am. Bring your photo ID and proof of insurance. This appointment will last 2-3 hours.) Overall status at discharge: Stable Disposition: Home, Self-Care Quality - Multiple Antipsychotics Patient discharged on 2 or more antipsychotic medications: No
== END 2018-02-16 14:00 | disposition home or self-care (01) | DRG 751 ==
LOC: 1ANU 19:47
PROVIDERS: ADMIT Psychiatry & Neurology Psychiatry; ATTEND Psychiatry & Neurology Psychiatry

== ENCOUNTER 2018-03-01 21:28 | Inpatient (IN) ==
--- NOTE | 2018-03-01 21:37 | Emergency Department Note ---
Disposition Clinical Impression: Alcohol abuse, Suicidal ideation, Medical clearance for psychiatric admission Disposition: Still a Patient Condition: Undetermined Referrals: NONE,PCP [Primary Care Provider] - Forms: ED Satisfaction Letter Time of Disposition: 23:13 Psych HPI - General Chief Complaint: ED Psychiatric Symptoms Stated Complaint: SI Time Seen by Provider: 03/01/18 21:33 Source: patient, EMS Mode of arrival: EMS Limitations: other (intoxication) Nursing Notes Reviewed: Yes Vital Signs Reviewed: Yes - History of Present Illness HPI Narrative: 42-year-old male arrives to the emergency department with suicidal ideation and multiple attempts over the course of the past 48 hours. The patient states he recently lost his job and his home and he is having a rough time. The patient states he has had roughly 2 gallons of liquor today. The patient states that he has been drinking for the past 48 hours. He states he was suicidal ideation as well as multiple times. The patient cut his head and his face. No active bleeding at this time. He denies any other suicidal attempts or deftly has plans but will not disclose. - Related Data Previous Rx's Medication Instructions Recorded Folic Acid 1 mg PO DAILY tablet 02/13/18 HydrOXYzine 10 mg PO QID PRN tablet 02/13/18 Promethazine [Phenergan] 12.5 mg IVP Q4HR PRN vial 02/13/18 Thiamine (B-1) [Vitamin B-1] 100 mg PO DAILY tablet 02/13/18 Divalproex (12 HR) [Depakote (12 250 mg PO BID #30 tablet.dr 02/16/18 HR)] Escitalopram [Lexapro] 10 mg PO DAILY #14 tablet 02/16/18 Naltrexone HCl 50 mg PO DAILY #30 tablet 02/16/18 cloNIDine HCl [CloNIDine HCl] 0.1 mg PO BID #30 tablet 02/16/18 Allergies Allergy/AdvReac Type Severity Reaction Status Date / Time No Known Allergies Allergy Verified 02/08/18 01:12 All systems ED: reviewed and negative except as stated. Constitutional: Denies: fever, chills, weakness Cardiovascular: Denies: chest pain Respiratory: Denies: dyspnea Gastrointestinal: Denies: abdominal pain Genitourinary: Denies: urgency, dysuria Musculoskeletal: Denies: back pain Integumentary: Denies: rash Neurological: Denies: headache Psychiatric: Reports: depression, suicidal thoughts. Denies: homicidal thoughts , auditory hallucinations, visual hallucinations Past Medical History - Past Medical History Attestation: Yes The following information was validated with the patient. Source: patient, old records reviewed Medical history: Reports: hypertension Surgical history: Reports: non-contributory Psychiatric history: Reports: no psych history - Social History Smoking Status: Never smoker Alcohol use: Reports: heavy, recent Drug use: Reports: none Physical Exam - General Limitations: no limitations General appearance: alert, in no apparent distress, appears intoxicated - Head Head exam: normocephalic, other (Superficial lacerations to scalp and face. No active bleeding noted.) - Eye Eye exam: Present: normal appearance, PERRL, EOMI - ENT ENT exam: normal exam, normal oropharynx, mucous membranes moist - Neck Neck exam: Present: normal inspection, full ROM, trachea midline - Chest Chest inspection: Present: normal inspection, symmetric chest wall rise - Respiratory Respiratory exam: Absent: respiratory distress - Cardiovascular Cardiovascular exam: Present: tachycardia - Extremities Exam Extremities exam: Present: normal inspection, full ROM. Absent: tenderness, pedal edema - Neurological Exam Neurological exam: Present: alert, oriented X3, other (intoxicated) - Psychiatric Psychiatric exam: Present: depressed, suicidal ideation. Absent: agitated, anxious, flat affect, manic, homicidal ideation - Skin Skin exam: Present: warm, dry, normal color Course - Reevaluation(s) Reevaluation #1: Patient's alcohol was at 330. We will repeat at 0600 of the morning. Time: 22:17 Vital Signs Temperature 97.4 F L 03/01/18 21:35 Pulse Rate 127 03/01/18 21:35 Respiratory Rate 19 03/01/18 21:35 Blood Pressure 151/108 03/01/18 21:35 O2 Sat by Pulse Oximetry 97 03/01/18 21:35 Temperature 97.4 F L 03/01/18 21:35 Pulse Rate 127 03/01/18 21:35 Respiratory Rate 19 03/01/18 21:35 Blood Pressure 151/108 03/01/18 21:35 O2 Sat by Pulse Oximetry 97 03/01/18 21:35 Oxygen Delivery Oxygen Delivery Room Air Psych - MDM Narrative Medical decision making narrative: Patient care will be signed out to the night team for further disposition. The patient will be awaiting until he is sober and can have a repeat alcohol level. - Lab Data Result diagrams: 03/01/18 21:40 03/01/18 21:40 Lab Results 03/01/18 03/01/18 Range/Units 21:40 21:40 WBC 11.9 H (4.3-11.1) K/mcL RBC 5.63 H (4.19-5.50) M/mcL Hgb 16.0 (12.9-16.9) g/dL Hct 48.1 (37.5-50.1) % MCV 85.4 (83.0-100.0) fL MCH 28.4 (28.0-33.3) pg MCHC 33.3 (31.6-35.5) g/dL RDW 17.4 H (11.5-14.5) % Plt Count 273 (140-400) K/mcL MPV 9.6 (9.4-12.4) fL Immature Gran % 0.3 (0-4) % Seg Neutrophils % 50.7 % Lymphocytes % 42.4 % Monocytes % 4.9 % Eosinophils % 0.9 % Basophils % 0.8 % Neutrophils # 6.0 (1.6-8.9) K/mcL Lymphocytes # 5.1 H (0.6-4.6) K/mcL Monocytes # 0.6 (0.0-1.3) K/mcL Eosinophils # 0.1 (0.0-0.6) K/mcL Basophils # 0.1 (0.0-0.2) K/mcL Sodium 142 (136-145) mEq/L Potassium 3.7 (3.5-5.1) mEq/L Chloride 99 (98-107) mEq/L Carbon Dioxide 19 L (23-29) mEq/L BUN 20 (6-20) mg/dL Creatinine 0.83 (0.70-1.30) mg/dL Est GFR ( Amer) > 60 (> 60) Est GFR (Non-Af Amer) > 60 (> 60) BUN/Creatinine Ratio 24 (6-26) Glucose 87 (70-105) mg/dL Calculated Osmolality 296 (280-300) Calcium 8.5 L (8.6-10.3) mg/dL Salicylates < 2.5 L (15.0-30.0) mg/dL Acetaminophen < 10 L (10-20) mcg/mL Ethyl Alcohol 330 H (Less than 10) mg/dL - EKG Data EKG attestation: Yes I reviewed and interpreted this EKG. EKG results narrative: Heart rate 122. Sinus tachycardia. No ST elevation or ST depression noted. No acute changes noted with the exception of tachycardia. Psychiatric Medical Clearance - Medical Clearance Checklist Medical History: No Social History Section defined Current Vitals: Last Vital Signs Temp 97.4 F L 03/01/18 21:35 Pulse 127 03/01/18 21:35 Resp 19 03/01/18 21:35 BP 151/108 03/01/18 21:35 Pulse Ox 97 03/01/18 21:35 Psychiatric Lab Panel: Drug Levels and Toxicity 03/01/18 21:40 Acetaminophen < 10 L Ethyl Alcohol 330 H Abnormal Labs: Abnormal lab results WBC 11.9 K/mcL (4.3-11.1) H 03/01/18 21:40 RBC 5.63 M/mcL (4.19-5.50) H 03/01/18 21:40 RDW 17.4 % (11.5-14.5) H 03/01/18 21:40 Lymphocytes # 5.1 K/mcL (0.6-4.6) H 03/01/18 21:40 Carbon Dioxide 19 mEq/L (23-29) L 03/01/18 21:40 Calcium 8.5 mg/dL (8.6-10.3) L 03/01/18 21:40 Salicylates < 2.5 mg/dL (15.0-30.0) L 03/01/18 21:40 Acetaminophen < 10 mcg/mL (10-20) L 03/01/18 21:40 Ethyl Alcohol 330 mg/dL (Less than 10) H 03/01/18 21:40 Statement of Medical Clearance: I have evaluated the patient, reviewed diagnostic information, and certify that the patient's medical condition is sufficiently stable that transfer to the psychiatric unit does not pose a significant risk of deterioration.
[2018-03-01 21:49] LABS: Basophils # 0.1 K/mcL (0.0-0.2); Basophils % 0.8 %; Eosinophils # 0.1 K/mcL (0.0-0.6); Eosinophils % 0.9 %; Hematocrit 48.1 % (37.5-50.1); Immature Granulocytes % 0.3 % (0-4); Lymphocytes # 5.1 K/mcL (0.6-4.6); Lymphocytes % 42.4 %; Mean Corpuscular HGB Conc 33.3 g/dL (31.6-35.5); Mean Corpuscular Hemoglobin 28.4 pg (28.0-33.3); Mean Corpuscular Volume 85.4 fL (83.0-100.0); Mean Platelet Volume 9.6 fL (9.4-12.4); Monocytes # 0.6 K/mcL (0.0-1.3); Monocytes % 4.9 %; Platelet Count 273 K/mcL (140-400); Red Blood Count 5.63 M/mcL (4.19-5.50); Red Cell Distribution Width 17.4 % (11.5-14.5); Segmented Neutrophils % 50.7 %
[2018-03-01 22:11] LABS: Acetaminophen < 10 mcg/mL (10-20); BUN/Creatinine Ratio 24 (6-26); Blood Urea Nitrogen 20 mg/dL (6-20); Calcium 8.5 mg/dL (8.6-10.3); Carbon Dioxide 19 mEq/L (23-29); Chloride 99 mEq/L (98-107); Ethanol 330 mg/dL (Less than 10); Glucose 87 mg/dL (70-105); Osmolality,Calculated 296 (280-300); Potassium 3.7 mEq/L (3.5-5.1); Salicylate < 2.5 mg/dL (15.0-30.0); Sodium 142 mEq/L (136-145); eGFR For Non-African Americans > 60 (> 60)
[2018-03-01 23:47] LABS: Bilirubin,Urine Negative (Negative); Blood,Urine Trace (Negative); Clarity,Urine Clear (Clear); Color,Urine Yellow (Yellow); Glucose,Urine (UA) Normal (Normal); Ketones,Urine 40 mg/dL (Negative); Leukocyte Esterase,Urine Negative (Negative); Nitrite,Urine Negative (Negative); PH,Urine 5.5 pH Units (5.0-8.0); Protein,Urine 100 mg/dL (Neg-Trace); Specific Gravity,Urine 1.024 (1.010-1.025); Urobilinogen,Urine Normal (Normal)
[2018-03-01 23:50] LABS: Squamous Epithelial Cell,Urine Many per lpf (None-Few)
[2018-03-01] MEDS ORDERED: *HR* LORazepam 1 MG TABLET PO ONE (23:53)
[2018-03-02 00:02] LABS: Bacteria,Urine Few per hpf (None-Few); Granular Casts,Urine Few per lpf (None Seen); Hyaline Casts,Urine Few per lpf (None-Few); Mucus,Urine Moderate (Few)
--- NOTE | 2018-03-02 00:06 | Emergency Department Note ---
Disposition Clinical Impression: Alcohol abuse, Suicidal ideation, Medical clearance for psychiatric admission Disposition: Still a Patient Condition: Undetermined Referrals: NONE,PCP [Primary Care Provider] - Forms: ED Satisfaction Letter General Adult HPI - General Chief complaint: ED Psychiatric Symptoms Stated complaint: SI Time Seen by Provider: 03/01/18 21:33 Source: patient, EMS Mode of arrival: EMS Limitations: no limitations - History of Present Illness Pain Scale: 9 - Related Data Previous Rx's Medication Instructions Recorded Folic Acid 1 mg PO DAILY tablet 02/13/18 HydrOXYzine 10 mg PO QID PRN tablet 02/13/18 Promethazine [Phenergan] 12.5 mg IVP Q4HR PRN vial 02/13/18 Thiamine (B-1) [Vitamin B-1] 100 mg PO DAILY tablet 02/13/18 Divalproex (12 HR) [Depakote (12 250 mg PO BID #30 tablet.dr 02/16/18 HR)] Escitalopram [Lexapro] 10 mg PO DAILY #14 tablet 02/16/18 Naltrexone HCl 50 mg PO DAILY #30 tablet 02/16/18 cloNIDine HCl [CloNIDine HCl] 0.1 mg PO BID #30 tablet 02/16/18 Allergies Allergy/AdvReac Type Severity Reaction Status Date / Time No Known Allergies Allergy Verified 02/08/18 01:12 Constitutional: Denies: fever, chills, weakness Cardiovascular: Denies: chest pain Respiratory: Denies: dyspnea Gastrointestinal: Denies: abdominal pain Genitourinary: Denies: urgency, dysuria Musculoskeletal: Denies: back pain Integumentary: Denies: rash Neurological: Denies: headache Psychiatric: Reports: depression, suicidal thoughts. Denies: homicidal thoughts , auditory hallucinations, visual hallucinations Past Medical History - Past Medical History Medical history: Reports: hypertension Surgical history: Reports: non-contributory Psychiatric history: Reports: no psych history - Social History Smoking Status: Never smoker Smokeless Tobacco Status: No Alcohol use: Reports: heavy, recent Drug use: Reports: none Physical Exam - General Limitations: no limitations General appearance: alert, in no apparent distress, appears intoxicated Course Vital Signs Temperature 97.4 F L 03/01/18 21:35 Pulse Rate 127 03/01/18 21:35 Respiratory Rate 19 03/01/18 21:35 Blood Pressure 151/108 03/01/18 21:35 O2 Sat by Pulse Oximetry 97 03/01/18 21:35 Temperature 97.4 F L 03/01/18 21:35 Pulse Rate 127 03/01/18 21:35 Respiratory Rate 19 03/01/18 21:35 Blood Pressure 151/108 03/01/18 21:35 O2 Sat by Pulse Oximetry 97 03/01/18 21:35 Oxygen Delivery Oxygen Delivery Room Air Medical Decision Making - Lab Data Result diagrams: 03/01/18 21:40 03/01/18 21:40 Lab Results 03/01/18 03/01/18 03/01/18 Range/Units 21:40 21:40 23:33 WBC 11.9 H (4.3-11.1) K/mcL RBC 5.63 H (4.19-5.50) M/mcL Hgb 16.0 (12.9-16.9) g/dL Hct 48.1 (37.5-50.1) % MCV 85.4 (83.0-100.0) fL MCH 28.4 (28.0-33.3) pg MCHC 33.3 (31.6-35.5) g/dL RDW 17.4 H (11.5-14.5) % Plt Count 273 (140-400) K/mcL MPV 9.6 (9.4-12.4) fL Immature Gran % 0.3 (0-4) % Seg Neutrophils % 50.7 % Lymphocytes % 42.4 % Monocytes % 4.9 % Eosinophils % 0.9 % Basophils % 0.8 % Neutrophils # 6.0 (1.6-8.9) K/mcL Lymphocytes # 5.1 H (0.6-4.6) K/mcL Monocytes # 0.6 (0.0-1.3) K/mcL Eosinophils # 0.1 (0.0-0.6) K/mcL Basophils # 0.1 (0.0-0.2) K/mcL Sodium 142 (136-145) mEq/L Potassium 3.7 (3.5-5.1) mEq/L Chloride 99 (98-107) mEq/L Carbon Dioxide 19 L (23-29) mEq/L BUN 20 (6-20) mg/dL Creatinine 0.83 (0.70-1.30) mg/dL Est GFR ( Amer) > 60 (> 60) Est GFR (Non-Af Amer) > 60 (> 60) BUN/Creatinine Ratio 24 (6-26) Glucose 87 (70-105) mg/dL Calculated Osmolality 296 (280-300) Calcium 8.5 L (8.6-10.3) mg/dL Urine Color Yellow (Yellow) Urine Clarity Clear (Clear) Urine pH 5.5 (5.0-8.0) pH Units Ur Specific [place] 1.024 (1.010-1.025) Urine Protein 100 H (Neg-Trace) mg/dL Urine Glucose (UA) Normal (Normal) mg/dL Urine Ketones 40 H (Negative) mg/dL Urine Blood Trace H (Negative) Urine Nitrite Negative (Negative) Urine Bilirubin Negative (Negative) Urine Urobilinogen Normal (Normal) mg/dL Ur Leukocyte Esterase Negative (Negative) Urine Microscopic RBC 3-5 H (0-3) per hpf Urine Microscopic WBC 3-5 H (0-3) per hpf Ur Squamous Epith Cells Many H (None-Few) per lpf Urine Bacteria Few (None-Few) per hpf Hyaline Casts Few (None-Few) per lpf Granular Casts Few H (None Seen) per lpf Urine Mucus Moderate H (Few) Salicylates < 2.5 L (15.0-30.0) mg/dL Acetaminophen < 10 L (10-20) mcg/mL Ur Drug Screen Interp Ethyl Alcohol 330 H (Less than 10) mg/dL 03/01/18 Range/Units 23:33 WBC (4.3-11.1) K/mcL RBC (4.19-5.50) M/mcL Hgb (12.9-16.9) g/dL Hct (37.5-50.1) % MCV (83.0-100.0) fL MCH (28.0-33.3) pg MCHC (31.6-35.5) g/dL RDW (11.5-14.5) % Plt Count (140-400) K/mcL MPV (9.4-12.4) fL Immature Gran % (0-4) % Seg Neutrophils % % Lymphocytes % % Monocytes % % Eosinophils % % Basophils % % Neutrophils # (1.6-8.9) K/mcL Lymphocytes # (0.6-4.6) K/mcL Monocytes # (0.0-1.3) K/mcL Eosinophils # (0.0-0.6) K/mcL Basophils # (0.0-0.2) K/mcL Sodium (136-145) mEq/L Potassium (3.5-5.1) mEq/L Chloride (98-107) mEq/L Carbon Dioxide (23-29) mEq/L BUN (6-20) mg/dL Creatinine (0.70-1.30) mg/dL Est GFR ( Amer) (> 60) Est GFR (Non-Af Amer) (> 60) BUN/Creatinine Ratio (6-26) Glucose (70-105) mg/dL Calculated Osmolality (280-300) Calcium (8.6-10.3) mg/dL Urine Color (Yellow) Urine Clarity (Clear) Urine pH (5.0-8.0) pH Units Ur Specific [place] (1.010-1.025) Urine Protein (Neg-Trace) mg/dL Urine Glucose (UA) (Normal) mg/dL Urine Ketones (Negative) mg/dL Urine Blood (Negative) Urine Nitrite (Negative) Urine Bilirubin (Negative) Urine Urobilinogen (Normal) mg/dL Ur Leukocyte Esterase (Negative) Urine Microscopic RBC (0-3) per hpf Urine Microscopic WBC (0-3) per hpf Ur Squamous Epith Cells (None-Few) per lpf Urine Bacteria (None-Few) per hpf Hyaline Casts (None-Few) per lpf Granular Casts (None Seen) per lpf Urine Mucus (Few) Salicylates (15.0-30.0) mg/dL Acetaminophen (10-20) mcg/mL Ur Drug Screen Interp See Below Ethyl Alcohol (Less than 10) mg/dL Attestation Statement - Attestation Attestation: I examined this patient and my medical decision-making was reviewed with the Resident Physician. I agree with the documented findings, disposition and treatment plan as described except to the extent set forth below. Patient arrives intoxicated with suicidal ideation. Also complaining of anxiety. Denies chest pain or shortness of breath, does state that he feels his heart pounding in his chest. I will call him was 3:30. Treating his anxiety symptomatically. EKG showed sinus tachycardia without ischemia. Will require psychiatric evaluation. Anticipate admission.
[2018-03-02 00:14] LABS: Amphetamine Screen,Urine Negative ng/mL (Cutoff=1000); Barbiturate Screen,Urine Negative ng/mL (Cutoff=200); Benzodiazepines Screen,Urine Positive ng/mL (Cutoff=200); Cannabinoid Screen,Urine Negative ng/mL (Cutoff = 50); Cocaine Screen,Urine Negative ng/mL (Cutoff= 300); Opiate Screen,Urine Negative ng/mL (Cutoff=300); Phencyclidine Screen,Urine Negative ng/mL (Cutoff=25)
--- NOTE | 2018-03-02 06:52 | Emergency Department Note ---
Disposition Clinical Impression: Alcohol abuse, Suicidal ideation, Medical clearance for psychiatric admission Alcohol withdrawal Qualifiers: Complication of substance-induced condition: uncomplicated Qualified Code(s): F10.230 - Alcohol dependence with withdrawal, uncomplicated Disposition: Admitted As Inpatient Condition: Serious Referrals: NONE,PCP [Primary Care Provider] - Forms: ED Satisfaction Letter Time of Disposition: 08:06 General Adult HPI - General Chief complaint: ED Psychiatric Symptoms Stated complaint: SI Time Seen by Provider: 03/01/18 21:33 Source: patient, EMS Mode of arrival: EMS Limitations: no limitations - History of Present Illness Pain Scale: 7 - Related Data Previous Rx's Medication Instructions Recorded Folic Acid 1 mg PO DAILY tablet 02/13/18 HydrOXYzine 10 mg PO QID PRN tablet 02/13/18 Promethazine [Phenergan] 12.5 mg IVP Q4HR PRN vial 02/13/18 Thiamine (B-1) [Vitamin B-1] 100 mg PO DAILY tablet 02/13/18 Divalproex (12 HR) [Depakote (12 250 mg PO BID #30 tablet.dr 02/16/18 HR)] Escitalopram [Lexapro] 10 mg PO DAILY #14 tablet 02/16/18 Naltrexone HCl 50 mg PO DAILY #30 tablet 02/16/18 cloNIDine HCl [CloNIDine HCl] 0.1 mg PO BID #30 tablet 02/16/18 Allergies Allergy/AdvReac Type Severity Reaction Status Date / Time No Known Allergies Allergy Verified 02/08/18 01:12 Constitutional: Denies: fever, chills, weakness Cardiovascular: Denies: chest pain Respiratory: Denies: dyspnea Gastrointestinal: Denies: abdominal pain Genitourinary: Denies: urgency, dysuria Musculoskeletal: Denies: back pain Integumentary: Denies: rash Neurological: Denies: headache Psychiatric: Reports: depression, suicidal thoughts. Denies: homicidal thoughts , auditory hallucinations, visual hallucinations Past Medical History - Past Medical History Medical history: Reports: hypertension Surgical history: Reports: non-contributory Psychiatric history: Reports: no psych history - Social History Smoking Status: Never smoker Smokeless Tobacco Status: No Alcohol use: Reports: heavy, recent Drug use: Reports: none Physical Exam - General Limitations: no limitations General appearance: alert, in no apparent distress, appears intoxicated Course Vital Signs Temperature 97.4 F L 03/01/18 21:35 Pulse Rate 127 10/16/18 21:35 Respiratory Rate 19 03/01/18 21:35 Blood Pressure 151/108 03/01/18 21:35 O2 Sat by Pulse Oximetry 97 03/01/18 21:35 Temperature 97.4 F L 03/01/18 21:35 Pulse Rate 132 03/02/18 06:28 Respiratory Rate 21 03/02/18 06:28 Blood Pressure 171/111 03/02/18 06:28 O2 Sat by Pulse Oximetry 96 03/02/18 06:28 Oxygen Delivery Oxygen Delivery Room Air Medical Decision Making - Lab Data Result diagrams: 03/01/18 21:40 03/01/18 21:40 Lab Results 03/01/18 03/01/18 03/01/18 Range/Units 21:40 21:40 23:33 WBC 11.9 H (4.3-11.1) K/mcL RBC 5.63 H (4.19-5.50) M/mcL Hgb 16.0 (12.9-16.9) g/dL Hct 48.1 (37.5-50.1) % MCV 85.4 (83.0-100.0) fL MCH 28.4 (28.0-33.3) pg MCHC 33.3 (31.6-35.5) g/dL RDW 17.4 H (11.5-14.5) % Plt Count 273 (140-400) K/mcL MPV 9.6 (9.4-12.4) fL Immature Gran % 0.3 (0-4) % Seg Neutrophils % 50.7 % Lymphocytes % 42.4 % Monocytes % 4.9 % Eosinophils % 0.9 % Basophils % 0.8 % Neutrophils # 6.0 (1.6-8.9) K/mcL Lymphocytes # 5.1 H (0.6-4.6) K/mcL Monocytes # 0.6 (0.0-1.3) K/mcL Eosinophils # 0.1 (0.0-0.6) K/mcL Basophils # 0.1 (0.0-0.2) K/mcL Sodium 142 (136-145) mEq/L Potassium 3.7 (3.5-5.1) mEq/L Chloride 99 (98-107) mEq/L Carbon Dioxide 19 L (23-29) mEq/L BUN 20 (6-20) mg/dL Creatinine 0.83 (0.70-1.30) mg/dL Est GFR ( Amer) > 60 (> 60) Est GFR (Non-Af Amer) > 60 (> 60) BUN/Creatinine Ratio 24 (6-26) Glucose 87 (70-105) mg/dL Calculated Osmolality 296 (280-300) Calcium 8.5 L (8.6-10.3) mg/dL Urine Color Yellow (Yellow) Urine Clarity Clear (Clear) Urine pH 5.5 (5.0-8.0) pH Units Ur Specific [place] 1.024 (1.010-1.025) Urine Protein 100 H (Neg-Trace) mg/dL Urine Glucose (UA) Normal (Normal) mg/dL Urine Ketones 40 H (Negative) mg/dL Urine Blood Trace H (Negative) Urine Nitrite Negative (Negative) Urine Bilirubin Negative (Negative) Urine Urobilinogen Normal (Normal) mg/dL Ur Leukocyte Esterase Negative (Negative) Urine Microscopic RBC 3-5 H (0-3) per hpf Urine Microscopic WBC 3-5 H (0-3) per hpf Ur Squamous Epith Cells Many H (None-Few) per lpf Urine Bacteria Few (None-Few) per hpf Hyaline Casts Few (None-Few) per lpf Granular Casts Few H (None Seen) per lpf Urine Mucus Moderate H (Few) Salicylates < 2.5 L (15.0-30.0) mg/dL Urine Opiates Screen (Hyqdny=781) ng/mL Acetaminophen < 10 L (10-20) mcg/mL Ur Barbiturates Screen (Dxxvch=929) ng/mL Ur Phencyclidine Scrn (Cutoff=25) ng/mL Ur Amphetamines Screen (Yfozkh=2780) ng/mL U Benzodiazepines Scrn (Kyrzhn=012) ng/mL Urine Cocaine Screen (Cutoff= 300) ng/mL U Marijuana (THC) Screen (Cutoff = 50) ng/mL Ur Drug Screen Interp Ethyl Alcohol 330 H (Less than 10) mg/dL 18 03/02/18 Range/Units 23:33 06:40 WBC (4.3-11.1) K/mcL RBC (4.19-5.50) M/mcL Hgb (12.9-16.9) g/dL Hct (37.5-50.1) % MCV (83.0-100.0) fL MCH (28.0-33.3) pg MCHC (31.6-35.5) g/dL RDW (11.5-14.5) % Plt Count (140-400) K/mcL MPV (9.4-12.4) fL Immature Gran % (0-4) % Seg Neutrophils % % Lymphocytes % % Monocytes % % Eosinophils % % Basophils % % Neutrophils # (1.6-8.9) K/mcL Lymphocytes # (0.6-4.6) K/mcL Monocytes # (0.0-1.3) K/mcL Eosinophils # (0.0-0.6) K/mcL Basophils # (0.0-0.2) K/mcL Sodium (136-145) mEq/L Potassium (3.5-5.1) mEq/L Chloride (98-107) mEq/L Carbon Dioxide (23-29) mEq/L BUN (6-20) mg/dL Creatinine (0.70-1.30) mg/dL Est GFR ( Amer) (> 60) Est GFR (Non-Af Amer) (> 60) BUN/Creatinine Ratio (6-26) Glucose (70-105) mg/dL Calculated Osmolality (280-300) Calcium (8.6-10.3) mg/dL Urine Color (Yellow) Urine Clarity (Clear) Urine pH (5.0-8.0) pH Units Ur Specific [place] (1.010-1.025) Urine Protein (Neg-Trace) mg/dL Urine Glucose (UA) (Normal) mg/dL Urine Ketones (Negative) mg/dL Urine Blood (Negative) Urine Nitrite (Negative) Urine Bilirubin (Negative) Urine Urobilinogen (Normal) mg/dL Ur Leukocyte Esterase (Negative) Urine Microscopic RBC (0-3) per hpf Urine Microscopic WBC (0-3) per hpf Ur Squamous Epith Cells (None-Few) per lpf Urine Bacteria (None-Few) per hpf Hyaline Casts (None-Few) per lpf Granular Casts (None Seen) per lpf Urine Mucus (Few) Salicylates (15.0-30.0) mg/dL Urine Opiates Screen Negative (Yppvpz=662) ng/mL Acetaminophen (10-20) mcg/mL Ur Barbiturates Screen Negative (Anqlje=231) ng/mL Ur Phencyclidine Scrn Negative (Cutoff=25) ng/mL Ur Amphetamines Screen Negative (Zvioix=5862) ng/mL U Benzodiazepines Scrn Positive H (Hgcdig=594) ng/mL Urine Cocaine Screen Negative (Cutoff= 300) ng/mL U Marijuana (THC) Screen Negative (Cutoff = 50) ng/mL Ur Drug Screen Interp See Below Ethyl Alcohol < 10 (Less than 10) mg/dL Attestation Statement - Attestation Attestation: Care of patient assumed from Dr. Olivier at 07:00 pending repeat ETOH level and behavioral consultation 08:06: Patient's ETOH level undetectable. He is shaky and tremulous. States h /o ETOH w/d with seizures. Valium and banana bag ordered. Unable to clear medically due to ETOH w/d. Hospitalist accepts admission
[2018-03-02] MEDS ORDERED: diazePAM 10 MG/2 ML SYRINGE IVP ONE (08:05)
[2018-03-02] MEDS ORDERED: Thiamine (B-1) 100 MG, Folic Acid 1 MG, MVI, adult with vitamin K 10 ML in 0.9 % Sodi... IVPB ONE (08:15)
[2018-03-02] MEDS ORDERED: Naloxone 0.4 MG/ML INJ IVP PRN (08:28)
[2018-03-02] MEDS ORDERED: *HR* LORazepam 2 MG/ML VIAL IVP PRN ×3 (08:35→10:56)
--- NOTE | 2018-03-02 09:16 | Internal Med History&Physical ---
Date of Encounter: 03/02/18 Time of Encounter: 09:10 Internal Medicine - H&P: HPI Chief complaint: suicidal ideation Admitted From: Home Plans for Post Hospital Care: Home History of present illness: Mr. Merino is a 42 year old male PMH of Depression, alcohol abuse. Patient presented to the ED due to having suicidal ideation for the past 30 days. Patient reports that in November he broke up with a long time girlfriend and about 30 days ago he has been drinking about 1/2 a gallon of vodka a day. Reports that for the past 30 days he has been having thoughts of hurting himself, and tried cutting his head and neck with a knife once. Patient also reports that for this period of time he has been having anxiety attacks, which he describes as racing or his heart, feeling hot and sweaty and short of breath. Reports he has not been able to sleep well at night for the past 30 days as well. Reports that his last drink was before coming to the ED. Today morning patient has been having resting and intentional tremors. denies visual or auditory hallucinations. Reports nausea and one episode of non- bilious, non-bloody vomiting. Past Med Surg Social Fam HX - Past Medical History Medical history: hypertension Additional medical history: Denies Psychiatric history: no psych history - Past Surgical History Surgical History: non-contributory Additional surgical history: Denies - Social History Smoking Status: Never smoker Smokeless Tobacco Status: No Alcohol use: heavy, recent Drug use: none Internal Medicine - H&P: Meds Folic Acid 1 mg PO DAILY tablet 02/13/18 [Rx] HydrOXYzine 10 mg PO QID PRN tablet 02/13/18 [Rx] Promethazine [Phenergan] 12.5 mg IVP Q4HR PRN vial 02/13/18 [Rx] Thiamine (B-1) [Vitamin B-1] 100 mg PO DAILY tablet 02/13/18 [Rx] Divalproex (12 HR) [Depakote (12 HR)] 250 mg PO BID #30 tablet. 02/16/18 [Rx] Escitalopram [Lexapro] 10 mg PO DAILY #14 tablet 02/16/18 [Rx] Naltrexone HCl 50 mg PO DAILY #30 tablet 02/16/18 [Rx] cloNIDine HCl [CloNIDine HCl] 0.1 mg PO BID #30 tablet 02/16/18 [Rx] 3 Allergy/AdvReac Type Severity Reaction Status Date / Time No Known Allergies Allergy Verified 02/08/18 01:12 All Systems PM: A 10-system review of systems was performed and is negative for pertinent findings except as documented above in the HPI. - Constitutional Constitutional: chills, excessive sweating, weakness, no fatigue, no fever(s) - EENT Eyes: no pain, no seeing flashes Nose, mouth and throat: no dysphagia, no neck pain, no sore throat - Cardiovascular Cardiovascular ROS IM: diaphoresis, palpitations, no chest pain, no dyspnea on exertion, no irregular heart rhythm, no lightheadedness, no paroxysmal nocturnal dyspnea - Respiratory Respiratory: no cough, no wheezing, no stridor, no pain on inspiration - Gastrointestinal Gastrointestinal: no abdominal pain, no diarrhea, no loose stools - Genitourinary Genitourinary ROS male: no difficulty urinating, no nocturia, no testicular pain - Musculoskeletal Musculoskeletal ROS IM: no back pain - Integumentary Integumentary IM: no erythema, no rash - Neurological Neurological ROS: no abnormal speech, no lack of coordination, no loss of vision - Psychiatric Psychiatric: anxiety, depression, difficulty concentrating, hopelessness, suicidal ideation, no auditory hallucinations, no hallucinations, no homicidal ideation, no irritability, no visual hallucinations - Endocrine Endocrine IM: no cold intolerance, no fatigue, no polyphagia - Allergic/Immunologic Allergic/Immunologic: no tongue swelling (Rest of the review of system negative. ) - Constitutional Vitals: Temp Pulse Resp BP Pulse Ox 97.4 F L 132 21 171/111 96 03/01/18 21:35 03/02/18 06:28 03/02/18 06:28 03/02/18 06:28 03/02/18 06:28 Exam: General: Patient is alert, oriented, mild distress due to resting tremors. Head: normocephalic, healed laceration in the forehead Eye: normal appearance, PERRL, no scleral icterus, no conjunctival injection ENT: mucous membranes moist, normal external ear exam Respiratory: Good respiratory effort. Clear to auscultation bilaterally, no rales, wheezing no crackles. Cardiovascular:RRR, normal s1 and s2, No rubs, gallops, or murmors. Abdomen: Bowel sounds present normoactive x-4 quadrants. Abdomen is soft, nondistended. No guarding or rebound. No organomegaly noted. musculoskeletal: Spontaneously moving all extremities. no edema, no calf tenderness Skin: warm, dry, intact. Neuro: Alert and oriented x4. resting and intentional tremors. Psych: suicidal ideation Internal Med - H&P Results - Labs CBC & Chem 7: 03/01/18 21:40 03/01/18 21:40 Labs: Short CBC 03/01/18 Range/Units 21:40 WBC 11.9 H (4.3-11.1) K/mcL Hgb 16.0 (12.9-16.9) g/dL Hct 48.1 (37.5-50.1) % Plt Count 273 (140-400) K/mcL Neutrophils # 6.0 (1.6-8.9) K/mcL BMP 03/01/18 21:40 Sodium 142 Potassium 3.7 Chloride 99 Carbon Dioxide 19 L BUN 20 Creatinine 0.83 Glucose 87 Calcium 8.5 L Urine 03/01/18 Range/Units 23:33 Urine Color Yellow (Yellow) Urine Clarity Clear (Clear) Urine pH 5.5 (5.0-8.0) pH Units Ur Specific [place] 1.024 (1.010-1.025) Urine Protein 100 H (Neg-Trace) mg/dL Urine Glucose (UA) Normal (Normal) mg/dL - Assessment and plan (1) Alcohol withdrawal Current Visit: Yes Status: Acute Assessment and plan: Patient with a Hx of binge drinking. Reports drinking about 1/2 gallon of vodka for the past 30 days. Having resting tremor and palpitations. CIWA score of 12. Plan Telemetry monitoring started on Oxazepam 10mg/PO TID scheduled Lorazepam 1mg/IV Q4HR PRN for agitation Dyphenhydramine 50mg/iv Q8HR for agitation PRN. Will resume Home dose of Clonidine 0.1mg/PO TID started on Metoprolol 25mg/PO Q8HR, with holding parameter for SBP <110 or HR < 55. Mag and Phosp level Qualifiers: Complication of substance-induced condition: uncomplicated Qualified Code(s ): F10.230 - Alcohol dependence with withdrawal, uncomplicated (2) Suicidal ideation Current Visit: Yes Status: Acute Assessment and plan: Plan 1:1 sitter psych has been consulted. (3) Major depress dis, severe Current Visit: No Status: Acute Assessment and plan: Patient to resume and his home medications. Reports not being taking his medications for about 2 weeks. (4) Leukocytosis Current Visit: Yes Status: Acute Assessment and plan: Possible reactive. Port chest x-ray UA Qualifiers: Leukocytosis type: unspecified Qualified Code(s): D72.829 - Elevated white blood cell count, unspecified - Time Spent With Patient Total time spent is greater than 50% in coordination of care (as documented) at patient's floor/unit and/or counseling patient:
[2018-03-02] MEDS: cloNIDine HCl 0.1 MG TABLET PO SCH ×3 (11:21→20:37)
[2018-03-02] MEDS: Valproic Acid 250 MG CAPSULE PO SCH ×2 (14:14→14:53)
--- NOTE | 2018-03-02 14:32 | Psychiatry Progress Note ---
Date of Encounter: 03/02/18 Time of Encounter: 14:29 Subjective Interval history: Psychiatric consultation note: 42 years old male with long history of alcohol dependence and depression who presented for suicidal ideation and alcohol intoxication, alcohol level was 300 on admission. Psychiatric consultation was requested regarding suicidal ideation. Patient was recently hospitalized in and of January 2018 with a similar presentation. Patient admitted to binge drinking for several days at a time and unable to control his drinking. Patient also is noncompliant with follow-up's. Or medication. Patient has history of DTs and currently is under CIWA scale. Review of Systems Psychiatric: Reports: suicidal ideation Results - Vital Signs Vital Signs: Temp Pulse Resp BP Pulse Ox 98.8 F 113 16 144/91 100 03/02/18 09:21 03/02/18 09:21 03/02/18 09:21 03/02/18 09:21 03/02/18 09:21 Assessment and Plan (1) Suicidal ideation Current visit: Yes Status: Acute (2) Alcohol dependence Current visit: No Status: Acute Additional Plan: Continue medical stabilization. Please note patient has high risk for DTs and withdrawal delirium. When patient medically stable please reconsult to evaluate his suicidal ideation Qualifiers: Substance use status: uncomplicated Qualified Code(s): F10.20 - Alcohol dependence, uncomplicated Consult Discharge Plan - Plan Referrals: NONE,PCP [Primary Care Provider] - Psychiatry Exam - Constitutional Vitals: Temp Pulse Resp BP Pulse Ox 98.8 F 113 16 144/91 100 03/02/18 09:21 03/02/18 09:21 03/02/18 09:21 03/02/18 09:21 03/02/18 09:21 General appearance: age & developmentally appropriate, well-groomed, well- nourished, obese - Musculoskeletal Gait: normal Station: relaxed Strength & Tone: normal for patient - Psychiatric Patient Orientation: Yes Person, Yes Time, Yes Place Level of alertness: Alert Behavior: calm, cooperative Psychomotor activity: Normal Eye Contact: Maintains Eye Contact Mood Description: Euthymic/stable, Depressed, Labile Affect description: congruent with mood, constricted Speech Volume: Normal Speech pattern: normal rate, normal rhythm, normal tone, fluent, spontaneous Language & Vocabulary: consistent with education Thought Process: Linear, Goal Oriented Thought Content: Yes Suicidal ideation, No Homicidal ideation, No Overt delusions Perceptual Disturbances: No Auditory hallucinations, No Visual hallucinations Attention Span Ability: Capable of Focused Attention Memory Description: Grossly Intact Patient Reliability: Reliable Historian Fund of knowledge: Yes abstraction ability, Yes aware of current events Intelligence Estimate: Average Judgment: Limited Insight: Partial
--- NOTE | 2018-03-02 21:59 | Electrocardiograph Report ---
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
[2018-03-03] MEDS: *HR* LORazepam 2 MG/ML VIAL IVP PRN (01:12)
[2018-03-03] MEDS: Valproic Acid 250 MG CAPSULE PO SCH ×3 (08:28→18:07)
[2018-03-03 11:16] LABS: Hematocrit 40.9 % (37.5-50.1); Hemoglobin 13.8 g/dL (12.9-16.9); Immature Platelets 5.1 % (1.1-6.1); Mean Corpuscular HGB Conc 33.7 g/dL (31.6-35.5); Mean Corpuscular Hemoglobin 28.5 pg (28.0-33.3); Mean Corpuscular Volume 84.5 fL (83.0-100.0); Mean Platelet Volume 10.6 fL (9.4-12.4); Red Blood Count 4.84 M/mcL (4.19-5.50); Red Cell Distribution Width 16.8 % (11.5-14.5)
[2018-03-03] MEDS ORDERED: Potassium Phosphate 44 MEQ in 0.9 % Sodium Chloride 250 ML IVPB ONE (12:15)
[2018-03-03 12:22] LABS: BUN/Creatinine Ratio 24 (6-26); Blood Urea Nitrogen 13 mg/dL (6-20); Calcium 9.1 mg/dL (8.6-10.3); Carbon Dioxide 24 mEq/L (23-29); Chloride 101 mEq/L (98-107); Glucose 123 mg/dL (70-105); Magnesium 1.9 mg/dL (1.6-2.6); Osmolality,Calculated 281 (280-300); Phosphorous 2.2 mg/dL (2.7-4.5); Potassium 3.9 mEq/L (3.5-5.1); Sodium 135 mEq/L (136-145); eGFR For Non-African Americans > 60 (> 60)
[2018-03-03] MEDS: Folic Acid 1 MG TABLET PO SCH (12:34)
[2018-03-03] MEDS: cloNIDine HCl 0.1 MG TABLET PO SCH ×3 (12:34→21:14)
[2018-03-03] MEDS: Thiamine (B-1) 100 MG TABLET PO SCH (12:35)
--- NOTE | 2018-03-03 12:37 | Internal Med Progress Note ---
Hospitalist Progress Note - Encounter Date of Encounter: 03/03/18 Time of Encounter: 08:15 - Subjective Interval History: Seen and examined at the bedside [facility] for aalcohol withdrawal and suicidal ideations. On alcohol withdrawal protocol. At time of review, alert oriented 3, not tremulous. Psychiatry evaluation noted. Continues to deny visual or auditory has hallucinations. No nausea or vomiting. - Exam Vitals: Temp Pulse Resp BP Pulse Ox 98.6 F 96 17 151/104 99 03/03/18 08:00 03/03/18 08:00 03/03/18 08:00 03/03/18 08:00 03/03/18 08:00 Exam: General: Patient is alert, oriented, not in any form of distress Head: normocephalic, healed laceration in the forehead Eye: normal appearance, PERRL, no scleral icterus, no conjunctival injection ENT: mucous membranes moist, normal external ear exam Respiratory: Clear to auscultation bilaterally Cardiovascular:RRR, normal s1 and s2, No rubs, gallops, or murmors. Abdomen: Bowel sounds present normoactive x-4 quadrants. Abdomen is soft, nondistended. No guarding or rebound. No organomegaly noted. musculoskeletal: Spontaneously moving all extremities. no edema, no calf tenderness Skin: warm, dry, intact. Neuro: Alert and oriented x4. resting and intentional tremors. Psych: Denies suicidal ideation - Assessment and Plan (1) Suicidal ideation Current Visit: Yes Status: Acute Assessment and Plan: Plan 1:1 sitter psych has been consulted, evaluation noted. We will reconsult when patient is medically stable for transfer to (2) Alcohol withdrawal Current Visit: Yes Status: Acute Assessment and Plan: Patient with a Hx of binge drinking. Reports drinking about 1/2 gallon of vodka for the past 30 days. Having resting tremor and palpitations. CIWA score of 12 on arrival.. Continue CIWA protocol Continue thiamine and multivitamin and folate Continue Librium, titrate as needed. (3) Major depress dis, severe Current Visit: Yes Status: Chronic Assessment and Plan: Continue home medications which include Depakote, Lexapro. (4) Leukocytosis Current Visit: Yes Status: Resolved Assessment and Plan: Resulted from today's labs. (5) Hypophosphatemia Current Visit: Yes Status: Acute Assessment and Plan: Replaced by mouth. Repeat check with morning labs. - Time Spent with Patient Total time spent is greater than 50% in coordination of care (as documented) at patient's floor/unit and/or counseling patient: Plan of Care Discussed with: patient Internal Medicine: Result - Labs CBC & Chem 7: 03/01/18 21:40 03/03/18 04:01 Labs: BMP 03/03/18 04:01 Sodium 135 L Potassium 3.9 Chloride 101 Carbon Dioxide 24 BUN 13 Creatinine 0.54 L Glucose 123 H Calcium 9.1 Consult Discharge Plan - Plan Referrals: NONE,PCP [Primary Care Provider] - (2) Alcohol withdrawal Qualifiers: Complication of substance-induced condition: uncomplicated Qualified Code(s): F10.230 - Alcohol dependence with withdrawal, uncomplicated (4) Leukocytosis Qualifiers: Leukocytosis type: unspecified Qualified Code(s): D72.829 - Elevated white blood cell count, unspecified
[2018-03-03] MEDS ORDERED: Valproic Acid 250 MG CAPSULE PO ONE (15:09)
[2018-03-03] MEDS ORDERED: *HR* LORazepam 2 MG/ML VIAL IVP ONE ×2 (15:09)
[2018-03-03] MEDS ORDERED: Thiamine (B-1) 100 MG TABLET PO ONE (15:09)
[2018-03-03] MEDS ORDERED: cloNIDine HCl 0.1 MG TABLET PO ONE (15:09)
[2018-03-03] MEDS ORDERED: Folic Acid 1 MG TABLET PO ONE (15:09)
[2018-03-04] MEDS: *HR* LORazepam 2 MG/ML VIAL IVP PRN ×2 (00:51→06:08)
[2018-03-04 05:12] LABS: BUN/Creatinine Ratio 20 (6-26); Blood Urea Nitrogen 12 mg/dL (6-20); Carbon Dioxide 26 mEq/L (23-29); Chloride 102 mEq/L (98-107); Glucose 121 mg/dL (70-105); Magnesium 1.9 mg/dL (1.6-2.6); Osmolality,Calculated 283 (280-300); Phosphorous 3.4 mg/dL (2.7-4.5); Potassium 4.1 mEq/L (3.5-5.1); Sodium 136 mEq/L (136-145); eGFR For Non-African Americans > 60 (> 60)
[2018-03-04] MEDS: traMADol 50 MG TABLET PO PRN (06:08)
--- NOTE | 2018-03-04 08:58 | Internal Med Progress Note ---
Hospitalist Progress Note - Encounter Date of Encounter: 03/04/18 Time of Encounter: 08:58 - Subjective Interval History: Seen and examined at the bedside admitted to obs for aalcohol withdrawal and suicidal ideations. On alcohol withdrawal protocol. At time of review, alert oriented 3, not tremulous. Psychiatry evaluation noted. Continues to deny visual or auditory has hallucinations. No nausea or vomiting. Will discontinue lorazepam, increase librium and metoprolol and monitor for the nect 24 hrs, will reconsult psych Patient agrees with plan of care - Exam Vitals: Temp Pulse Resp BP Pulse Ox 98.8 F 79 17 143/102 98 03/04/18 05:38 03/04/18 05:38 03/04/18 05:38 03/04/18 05:38 03/04/18 05:38 Exam: General: Patient is alert, oriented, not in any form of distress Head: normocephalic, healed laceration in the forehead Eye: normal appearance, PERRL, no scleral icterus, no conjunctival injection ENT: mucous membranes moist, normal external ear exam Respiratory: Clear to auscultation bilaterally Cardiovascular:RRR, normal s1 and s2, No rubs, gallops, or murmors. Abdomen: Bowel sounds present normoactive x-4 quadrants. Abdomen is soft, nondistended. No guarding or rebound. No organomegaly noted. musculoskeletal: Spontaneously moving all extremities. no edema, no calf tenderness Skin: warm, dry, intact. Neuro: Alert and oriented x4. No tremors this a.m Psych: Denies suicidal ideation - Assessment and Plan (1) Suicidal ideation Current Visit: Yes Status: Acute Assessment and Plan: Plan 1:1 sitter psych has been consulted, evaluation noted. We will reconsult when patient is medically stable for transfer to (2) Alcohol withdrawal Current Visit: Yes Status: Acute Assessment and Plan: Patient with a Hx of binge drinking. Reports drinking about 1/2 gallon of vodka for the past 30 days. Having resting tremor and palpitations. CIWA score of 12 on arrival.. D/C Lorazepam Continue thiamine and multivitamin and folate Continue Librium, titrate as needed. (3) Major depress dis, severe Current Visit: Yes Status: Chronic Assessment and Plan: Continue home medications which include Depakote, Lexapro. (4) Leukocytosis Current Visit: Yes Status: Resolved Assessment and Plan: Resolved (5) Hypophosphatemia Current Visit: Yes Status: Resolved Assessment and Plan: resolved - Time Spent with Patient Total time spent is greater than 50% in coordination of care (as documented) at patient's floor/unit and/or counseling patient: Plan of Care Discussed with: patient Internal Medicine: Result - Labs CBC & Chem 7: 03/03/18 04:01 03/04/18 04:26 Labs: Short CBC 03/03/18 Range/Units 04:01 WBC 6.5 (4.3-11.1) K/mcL Hgb 13.8 D (12.9-16.9) g/dL Hct 40.9 (37.5-50.1) % Plt Count 181 (140-400) K/mcL BMP 03/03/18 03/04/18 04:01 04:26 Sodium 135 L 136 Potassium 3.9 4.1 Chloride 101 102 Carbon Dioxide 24 26 BUN 13 12 Creatinine 0.54 L 0.59 L Glucose 123 H 121 H Calcium 9.1 9.0 Consult Discharge Plan - Plan Referrals: NONE,PCP [Primary Care Provider] - (2) Alcohol withdrawal Qualifiers: Complication of substance-induced condition: uncomplicated Qualified Code(s): F10.230 - Alcohol dependence with withdrawal, uncomplicated (4) Leukocytosis Qualifiers: Leukocytosis type: unspecified Qualified Code(s): D72.829 - Elevated white blood cell count, unspecified
[2018-03-04] MEDS: cloNIDine HCl 0.1 MG TABLET PO SCH ×3 (10:07→20:20)
[2018-03-04] MEDS: Thiamine (B-1) 100 MG TABLET PO SCH (10:07)
[2018-03-04] MEDS: Valproic Acid 250 MG CAPSULE PO SCH (10:08)
[2018-03-04] MEDS: Folic Acid 1 MG TABLET PO SCH (10:08)
[2018-03-04] MEDS: Divalproex (12 HR) 250 MG TABLET PO SCH ×2 (11:23→20:20)
[2018-03-05] MEDS ORDERED: Ondansetron 4 MG/2 ML VIAL IVP PRN (02:13)
[2018-03-05] MEDS: traMADol 50 MG TABLET PO PRN (02:23)
[2018-03-05] MEDS: Thiamine (B-1) 100 MG TABLET PO SCH (07:55)
[2018-03-05] MEDS: Folic Acid 1 MG TABLET PO SCH (07:55)
[2018-03-05] MEDS: Divalproex (12 HR) 250 MG TABLET PO SCH (07:55)
[2018-03-05] MEDS: cloNIDine HCl 0.1 MG TABLET PO SCH ×2 (07:56→14:39)
[2018-03-05] MEDS ORDERED: Acetaminophen 325 MG TABLET PO PRN (08:19)
--- NOTE | 2018-03-05 09:59 | Discharge Summary ---
- NOTES TO OUTPATIENT PROVIDER Notes to Outpatient Provider: 42-year-old male with medical history of alcohol abuse, depression and anxiety, who presented in alcohol withdrawal with suicidal ideation. Patient has been managed successfully transitioned from IV lorazepam to librium Psychiatry evaluation recommends patient is mentally stable to be discharged home with appropriate follow-up with mental health and substance abuse. Patient is not compliant with his medications for hypertension no his medications for depression and anxiety. He is discharged home with new prescriptions educated about importance of compliance. He verbalizes understanding. Follow-up with primary care physician and psychiatric as outpatient. Date of Encounter: 03/05/18 Time of Encounter: 09:59 - Discharge Diagnosis (1) Suicidal ideation Priority: Primary Status: Resolved (2) Alcohol withdrawal Priority: Primary Status: Resolved Qualifiers: Complication of substance-induced condition: uncomplicated Qualified Code(s): F10.230 - Alcohol dependence with withdrawal, uncomplicated (3) Major depress dis, severe Priority: Secondary Status: Chronic (4) Leukocytosis Priority: Primary Status: Resolved Qualifiers: Leukocytosis type: unspecified Qualified Code(s): D72.829 - Elevated white blood cell count, unspecified (5) Hypophosphatemia Priority: Primary Status: Resolved Hospital course: Mr. Merino is a 42 year old male 42-year-old male with medical history of alcohol abuse, depression and anxiety, who presented in alcohol withdrawal with suicidal ideation. Patient has been managed successfully transitioned from IV lorazepam to librium Psychiatry evaluation recommends patient is mentally stable to be discharged home with appropriate follow-up with mental health and substance abuse. Patient is not compliant with his medications for hypertension no his medications for depression and anxiety. He is discharged home with new prescriptions educated about importance of compliance. He verbalizes understanding. Follow-up with primary care physician and psychiatric as outpatient. Discharge discussed with: patient - Time Spent with Patient Total time spent providing and/or coordinating discharge services: Less than 30 minutes - Discharge Medications Prescriptions: Aspirin [Adult Aspirin] 81 mg PO DAILY #30 tablet. Chlordiazepoxide [Librium] 25 mg PO TID 5 Days #15 capsule cloNIDine HCl [CloNIDine HCl] 0.1 mg PO TID #90 tablet Divalproex (12 HR) [Depakote (12 HR)] 250 mg PO BID #60 tablet. Escitalopram [Lexapro] 10 mg PO DAILY #30 tablet Folic Acid 1 mg PO DAILY #30 tablet Metoprolol [Lopressor] 50 mg PO BID #60 tablet Thiamine (B-1) [Vitamin B-1] 100 mg PO DAILY #30 tablet Home Medications: Aspirin [Adult Aspirin] 81 mg PO DAILY #30 tablet. 03/05/18 [Rx] Chlordiazepoxide [Librium] 25 mg PO TID 5 Days #15 capsule 03/05/18 [Rx] Divalproex (12 HR) [Depakote (12 HR)] 250 mg PO BID #60 tablet. 03/05/18 [Rx] Escitalopram [Lexapro] 10 mg PO DAILY #30 tablet 03/05/18 [Rx] Folic Acid 1 mg PO DAILY #30 tablet 03/05/18 [Rx] Metoprolol [Lopressor] 50 mg PO BID #60 tablet 03/05/18 [Rx] Thiamine (B-1) [Vitamin B-1] 100 mg PO DAILY #30 tablet 03/05/18 [Rx] cloNIDine HCl [CloNIDine HCl] 0.1 mg PO TID #90 tablet 03/05/18 [Rx] Allergies/Adverse Reactions: Allergy/AdvReac Type Severity Reaction Status Date / Time No Known Allergies Allergy Verified 02/08/18 01:12 Date of admission: 03/03/18 14:51 Primary care physician: PCP NONE Consults: 03/02/18 08:33 Consult to Psychiatry [CONS] Stat Consulting Provider: Psychiatry Nely Reason consult: Other Other reason and/or additional details: suicidal ideation 03/02/18 10:21 Consult to Nutrition [CONS] Routine Comment: Lack of appetite Consulting Provider: NUTRITION Reason for Dietary Consult: Other 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 [CONS] Routine Reason for SW Consult: Alcohol abuse, rehab Discharging clinician: Parag Benavidez Anticipated date of discharge: 03/05/18 - Constitutional Vitals: Temp Pulse Resp BP Pulse Ox 97.7 F 80 17 142/90 97 03/05/18 07:06 03/05/18 07:06 03/05/18 07:06 03/05/18 07:06 03/05/18 07:06 Exam: General: Patient is alert, oriented, not in any form of distress Head: normocephalic, healed laceration in the forehead Eye: normal appearance, PERRL, no scleral icterus, no conjunctival injection ENT: mucous membranes moist, normal external ear exam Respiratory: Clear to auscultation bilaterally Cardiovascular:RRR, normal s1 and s2, No rubs, gallops, or murmors. Abdomen: Bowel sounds present normoactive x-4 quadrants. Abdomen is soft, nondistended. No guarding or rebound. No organomegaly noted. musculoskeletal: Spontaneously moving all extremities. no edema, no calf tenderness Skin: warm, dry, intact. Neuro: Alert and oriented x4. No tremors this a.m Psych: Denies suicidal ideation - Patient Status Disposition: Home, Self-Care Condition: Good Functional capacity at discharge: independent ambulation Overall status at discharge: patient is back to baseline - Discharge Instructions Instructions: Abuse of Alcohol (DC), At-Risk Alcohol Use (DC), Suicide Prevention for Adults (DC), Anxiety (DC) Follow Up With: NONE,PCP [Primary Care Provider] - - Diet and Activity Activity: resume usual activities as tolerated Diet: low salt diet
[2018-03-05 10:42] VITALS: BP 129/94
--- NOTE | 2018-03-05 13:32 | Psychiatry Progress Note ---
Date of Encounter: 03/05/18 Time of Encounter: 12:30 Subjective Interval history: Psychiatric consult follow-up note: Medical team report patient is scoring 0 on CIWA and stabilized without any withdrawal symptoms and ready for discharge after psychiatric clearance. On interview patient is alert awake, denies any suicidal ideation and anxious to be discharged. Impression: Alcohol dependence, alcohol intoxication, alcohol withdrawal Recommendation: When medically stable patient can be discharged. Patient meets no criteria for inpatient psych. Recommend follow-up for mental health and substance abuse. We will sign off on this consult. Review of Systems Psychiatric: Reports: suicidal ideation Results - Vital Signs Vital Signs: Temp Pulse Resp BP Pulse Ox 97.9 F 77 18 129/94 97 03/05/18 10:41 03/05/18 10:41 03/05/18 10:41 03/05/18 10:41 03/05/18 10:41 - Impressions ITS Impressions Chest X-Ray 03/02/18 09:09 IMPRESSION: 1. No acute radiographic abnormality in the chest. D/ / Carlos Almaraz MD / Carlos Almaraz MD Interpreting Provider: Carlos Almaraz MD Assessment and Plan (1) Suicidal ideation Current visit: Yes Status: Acute (2) Alcohol dependence Current visit: No Status: Acute Qualifiers: Substance use status: uncomplicated Qualified Code(s): F10.20 - Alcohol dependence, uncomplicated Consult Discharge Plan - Plan Referrals: NONE,PCP [Primary Care Provider] - Psychiatry Exam - Constitutional Vitals: Temp Pulse Resp BP Pulse Ox 97.9 F 77 18 129/94 97 03/05/18 10:41 03/05/18 10:41 03/05/18 10:41 03/05/18 10:41 03/05/18 10:41
== END 2018-03-05 15:10 | disposition home or self-care (01) | DRG 775 ==
LOC: 2ANU 21:28 → EMEROOARM 21:28 → 2ANU 03-02 10:10
PROVIDERS: ADMIT Internal Medicine; ATTEND Internal Medicine